=== PATIENT | male | born 1960 | race Hispanic/Latino ===

== ENCOUNTER 2018-12-31 09:24 | Emergency (ER) | payer SELFPAY ==
[2018-12-31 09:55] LABS: Absolute Lymphocytes (CBC) 1.6 K/uL (0.7-4.9); Absolute Monocytes 0.4 K/uL (0.1-1.3); Absolute Neutrophil 3.7 K/uL (1.8-8.0); Basophils % 0.4 % (0-1.3); Eosinophils % 3.8 % (0-4.4); Hematocrit 48.9 % (39.6-49.0); Lymphocytes % 27.4 % (15.3-44.8); MPV 8.4 fL (7.6-11.3); Monocytes % 6.5 % (3.3-12.3)
--- NOTE | 2018-12-31 09:58 | RAD REPORT ---
EXAM DESCRIPTION: CT - Head Brain Wo Cont - 12/31/2018 9:47 am CLINICAL HISTORY: Left-sided weakness, facial droop COMPARISON: None. TECHNIQUE: Axial 5 mm thick images of the head were obtained without IV contrast. All CT scans are performed using dose optimization technique as appropriate and may include automated exposure control or mA/KV adjustment according to patient size. FINDINGS: No intracranial hemorrhage, mass, edema or shift of mid-line structures. No acute cortical based infarction. There is an approximately 2 centimeter area of diminished attenuation involving th e right-side thalamus and posterior limb internal capsule. In a patient with left extremity weakness this is most likely acute nonhemorrhagic infarction. CVA changes likely extend further into the deep periventricular white matter posterior right frontal lobe. Patient has very prominent underlying chronic ischemic change throughout the cerebral hemispheric whi te matter. No abnormal extra-axial fluid collections. Ventricles are normal. No measurable atrophy. Mastoid air cells and visualized portions of the paranasal sinuses are clear. No acute bony findings. Findings telephoned to the referring clinician 9:45 a.m.. IMPRESSION: Moderately large area of nonhemorrhagic acute CVA involving the right thalamus, posterio r limb internal capsule on the right and likely extending in the deep periventricular white matter po sterior right frontal lobe. No hemorrhage or mass within the brain parenchyma. Patient has very advanced for age chronic ischemic change throughout the cerebral white matter.
--- NOTE | 2018-12-31 10:06 | RAD REPORT ---
EXAM DESCRIPTION: RAD - Chest Single View - 12/31/2018 9:50 am CLINICAL HISTORY: Left-sided weakness, code stroke chest exam COMPARISON: None. TECHNIQUE: AP portable chest image was obtained 0948 hours . FINDINGS: Lungs are clear. Heart and vasculature are normal. No measurable pleural effusion and no p neumothorax. No acute bony abnormality seen. No acute aortic findings suspected. IMPRESSION: No acute cardiopulmonary process.
[2018-12-31 10:07] LABS: Protime INR 0.99
[2018-12-31] MEDS ORDERED: CLOPIDOGREL 75 MG TABLET ONE (10:13)
[2018-12-31] MEDS ORDERED: ASPIRIN EC 81 MG TAB PO ONE (10:13)
[2018-12-31] MEDS ORDERED: LABETALOL 20 MG/4ML SYRINGE IV ONE (10:13)
[2018-12-31 10:14] LABS: ALT/SGPT 40 U/L (12-78); AST/SGOT 22 U/L (15-37); Albumin 4.1 g/dL (3.4-5.0); Alkaline Phosphatase 106 U/L (45-117); BUN Blood Urea Nitrogen 24 mg/dL (7-18); Bicarbonate 31 mmol/L (21-32); Bilirubin Direct 0.1 mg/dL (0-0.2); Bilirubin Total 0.4 mg/dL (0.2-1.0); Glucose Level 133 mg/dL (74-106); Potassium 3.9 mmol/L (3.5-5.1); Protein, Total 8.2 g/dL (6.4-8.2); Sodium Level 135 mmol/L (136-145); Troponin (Emerg Dept Use Only) < 0.02 ng/mL (0.0-0.045)
--- NOTE | 2018-12-31 10:25 | ER ---
Nurse's Notes [facility] Name: Abebe Bueno Age: 58 yrs Sex: Male : 1960 Arrival Date: 12/31/2018 Time: 09:25 Bed 6 Private MD: Diagnosis: Cerebral infarction Presentation: 12/31 09:32 Presenting complaint: Patient states: L sided weakness that began last night at 1030. ss Pt was admitted last Thursday for the same symptoms at [facility], but reports the symptoms went away, but are now back. Transition of care: patient was not received from another setting of care. Onset of symptoms was December 30, 2018. Risk Assessment: Do you want to hurt yourself or someone else? Patient reports no desire to harm self or others. Initial Sepsis Screen: Does the patient meet any 2 criteria? No. Patient's initial sepsis screen is negative. Does the patient have a suspected source of infection? No. Patient's initial sepsis screen is negative. Care prior to arrival: None. 09:32 Method Of Arrival: Wheelchair ss 09:32 Acuity: ALEJANDRO 2 ss Triage Assessment: 09:56 General: Appears in no apparent distress. comfortable, Behavior is cooperative, bp appropriate for age, anxious. Pain: Denies pain. Historical: - Allergies: 09:31 No Known Allergies; ss - PMHx: 09:31 Hypertension; Diabetes - NIDDM; ss - Immunization history:: Adult Immunizations up to date. - Social history:: Smoking status: Patient/guardian denies using tobacco. - Ebola Screening: : Patient denies exposure to infectious person Patient denies travel to an Ebola-affected area in the 21 days before illness onset. Screenin:30 The patient has not been NPO before screening. The patient is alert, able to follow bp commands. The patient exhibits slurred or garbled speech. The patient is not exhibiting difficulty speaking. The patient does not exhibit difficulty understanding words. The patient is able to swallow own secretions with no drooling or need for suction. Patient tolerated one teaspoon of water. No drooling, immediate coughing, gurgling, or clearing of the throat was noted. The patient tolerated 90mL of water. No drooling, immediate coughing, gurgling, or clearing of the throat was noted. The patient passed the bedside swallow screening. Oral medications may be given as ordered. Contact Physician for further diet orders. Provider notified of bedside swallow screening results: Yuri VAIL. 09:47 Abuse screen: Denies threats or abuse. Denies injuries from another. Nutritional ss screening: No deficits noted. Tuberculosis screening: Never had TB. Fall Risk None identified. Assessment: 09:30 General: Appears in no apparent distress. comfortable, Behavior is calm, cooperative, bp appropriate for age. Pain: Denies pain. Neuro: Level of Consciousness is awake, alert, obeys commands, Oriented to person, place, time, situation, Appropriate for age Dairy Manufacturing Technologist are weak on left Weakness in left arm(s) Speech is slurred, Facial droop on left. Cardiovascular: Rhythm is sinus rhythm. Respiratory: Airway is patent Respiratory effort is even, unlabored, Respiratory pattern is regular, symmetrical. GI: No signs and/or symptoms were reported involving the gastrointestinal system. : No signs and/or symptoms were reported regarding the genitourinary system. EENT: No deficits noted. Derm: No deficits noted. Musculoskeletal: Circulation, motion, and sensation intact. Range of motion: intact in all extremities. 10:00 Reassessment: TPA RULED OUT DUE TO ONSET. PER PROVIDER, NO HEMORRHAGE ON CT. bp 10:15 Reassessment: TRANSFER INITIATED TO [facility] FOR NEURO. bp 11:30 Reassessment: TRANSFER IN PROCESS, FAMILY AT [facility], NO CHANGE IN NEURO STATUS. aj1 12:13 Reassessment: REPORT TO MAI KIRBY AT [facility], RM 2222. TRANSPORT PENDING. bp 12:44 Reassessment: [facility] AT [facility] FOR TRANSPORT. bp Vital Signs: 09:30 BP 189 / 119; Pulse 76; Resp 17; Temp 98.1(TE); Pulse Ox 98% on R/A; Height 5 ft. 3 in. ss (160.02 cm); Pain 0/10; 10:00 BP 193 / 128; Pulse 72; Resp 17; Pulse Ox 97% ; bp 10:15 BP 171 / 119; Pulse 66; Resp 14; Pulse Ox 96% ; bp 11:15 BP 184 / 112; Pulse 76; Resp 16; Pulse Ox 95% ; aj1 12:00 BP 149 / 107; Pulse 75; Resp 13; Pulse Ox 95% ; bp 12:45 BP 163 / 107; Pulse 77; Resp 19; Pulse Ox 96% ; bp NIH Stroke Scale Scores: 09:30 NIHSS Score: 7 bp 09:53 NIHSS Score: 6 jr8 ED Course: 09:25 Patient arrived in ED. rg4 09:30 Arm band placed on right wrist. ss 09:32 Yuri Araiza PA is PHCP. jr8 09:32 Samir Linares MD is Attending Physician. jr8 09:33 Triage completed. ss 09:45 Inserted saline lock: 20 gauge in right antecubital area, using aseptic technique. ss ,using aseptic technique. insertion by David Russell, GOVERNMENT SALES MANAGER Blood collected. 09:47 Patient has correct armband on for positive identification. Bed in low position. Call ss light in reach. 09:48 X-ray completed. Portable x-ray completed in exam room. Patient tolerated procedure jb2 well. 09:49 EKG done, by fingernail technician. reviewed by Yuri VAIL. sm3 09:56 Gus Young, MIRTA is Primary Nurse. bp 10:12 initiated a transfer with Dorys at the [facility] transfer center. eb 10:[address] Low the neurologist conservation science teacher with Yuri VAIL for patient transfer eb consultation. 10:[address] Morillo the hospitalist conservation science teacher for [facility] with Yuri for patient eb transfer consultation. 11:52 administrative approval given by Dorys aDvila RN at the [facility] transfer eb center/ Dr. Cheema has accepted the patient in transfer/ patient will be going to 2222/ report to be called to [phone]. 12:13 No provider procedures requiring assistance completed. Patient transferred, IV remains bp in place. Administered Medications: 10:07 Drug: Aspirin 81 mg Route: PO; bp 10:18 Follow up: Response: No adverse reaction bp 10:07 Drug: PlaVIX 75 mg Route: PO; bp 10:18 Follow up: Response: No adverse reaction bp 10:07 Drug: Labetalol 10 mg Route: IVP; Site: right antecubital; bp 10:18 Follow up: Response: No adverse reaction bp Point of Care Testing: Blood Glucose: 09:47 Blood Glucose: 143 mg/dL; ss Ranges: Outcome: 10:25 ER care complete, transfer ordered by MD. stanley 12:12 Transferred by ground EMS [place] [facility] [facility] [place]. bp 12:12 Condition: stable 12:12 Instructed on the need for transfer. 12:45 Patient left the ED. bp NIH Stroke Scale - NIH Stroke Score Date: 12/31/2018 Time: 09:30 Total Score = 7 1a. Level of Consciousness (LOC) - 0(Alert) 1b. Level of Consciousness (LOC) (Year \T\ Age) - 0(Both) 1c. LOC Commands (Open \T\ Closes Eyes/Bulk Truck Driver) - 0(Both) 2. Best Gaze (Lateral Gaze Paresis) - 0(Normal) 3. Visual Field Loss - 0(No visual loss) 4. Facial Palsy - 2(Partial paralysis) 5a. Left Arm: Motor (10-second hold) - 1(Drift) 5b. Right Arm: Motor (10-second hold) - 0(No drift) 6a. Left Leg: Motor (5-second hold - always test supine) - 1(Drift) 6b. Right Leg: Motor (5-second hold - always test supine) - 0(No drift) 7. Limb Ataxia (finger/nose \T\ heel/melo - test with eyes open) - 1(Present in one limb) 8. Sensory Loss (pinprick arms/legs/face) - 1(Mild to moderate loss) 9. Best Language: Aphasia (description/naming/reading) - 0(No aphasia) 10. Dysarthria (speech clarity - read or repeat words) - 1(Mild to Moderate) 11. Extinction and Inattention (visual/tactile/auditory/spatial/personal) - 0(No abnormality) Initials: bp NIH Stroke Scale - NIH Stroke Score Date: 12/31/2018 Time: 09:53 Total Score = 6 1a. Level of Consciousness (LOC) - 0(Alert) 1b. Level of Consciousness (LOC) (Year \T\ Age) - 0(Both) 1c. LOC Commands (Open \T\ Closes Eyes/Bulk Truck Driver) - 0(Both) 2. Best Gaze (Lateral Gaze Paresis) - 0(Normal) 3. Visual Field Loss - 0(No visual loss) 4. Facial Palsy - 1(Minor Paralysis) 5a. Left Arm: Motor (10-second hold) - 1(Drift) 5b. Right Arm: Motor (10-second hold) - 0(No drift) 6a. Left Leg: Motor (5-second hold - always test supine) - 1(Drift) 6b. Right Leg: Motor (5-second hold - always test supine) - 0(No drift) 7. Limb Ataxia (finger/nose \T\ heel/melo - test with eyes open) - 2(Present in two limbs) 8. Sensory Loss (pinprick arms/legs/face) - 0(Normal) 9. Best Language: Aphasia (description/naming/reading) - 0(No aphasia) 10. Dysarthria (speech clarity - read or repeat words) - 1(Mild to Moderate) 11. Extinction and Inattention (visual/tactile/auditory/spatial/personal) - 0(No abnormality) Initials: lizeth Signatures: Gladys Oh RN RN aj1 Timoteo Nino2 Malu Burroughs RN RN ss Yuri Araiza PA PA jr8 Ofelia Bueno rg4 Gus Young RN RN Hellen Jauregui Shakira sm3 Corrections: (The following items were deleted from the chart) 10:38 10:[address] Ocampo the neurologist conservation science teacher with Yuri VAIL for patient eb transfer consultation. eb 11:36 11:35 Reassessment: TRANSFER IN PROCESS, FAMILY AT B/S, NO CHANGE IN NEURO aj1 STATUS aj1
--- NOTE | 2018-12-31 10:26 | EDPHYS ---
Physician Documentation [facility] Name: Abebe Bueno Age: 58 yrs Sex: Male : 1960 Arrival Date: 12/31/2018 Time: 09:25 Bed 6 Private MD: ED Physician Samir Linares HPI: 12/31 09:53 This 58 yrs old Male presents to ER via Wheelchair with complaints of Numbness jr8 Of Arm. 09:53 The patient presents to the emergency department with weakness of the left upper jr8 extremity, that is moderate, left lower extremity, that is moderate. Onset: The symptoms/episode began/occurred acutely, at 22:30, last night. Context: occurred at home, occurred while the patient was at rest. Associated signs and symptoms: Pertinent positives: headache. Severity of symptoms: At their worst the symptoms were moderate in the emergency department the symptoms are unchanged. Patient's baseline: Neuro: alert and fully oriented, Motor: no deficits, Ambulation: walks without assistance, Speech: normal. Current symptoms: Currently, the patient is not experiencing any symptoms. The patient has experienced a previous episode. The patient has not recently seen a physician. stated that last week he was admitted to another hospital for what sounds like TIA symptoms. Currently not on aspirin or plavix but takes blood pressure medicine and medicine for diabetes. Last night at 22:30 started to have mild headache followed by numbness of left arm. saw his this morning and noticed he had weakness to left side of body and facial droop. Brought to clinic at that time and was told to come to ED . Historical: - Allergies: 09:31 No Known Allergies; ss - PMHx: 09:31 Hypertension; Diabetes - NIDDM; ss - Immunization history:: Adult Immunizations up to date. - Social history:: Smoking status: Patient/guardian denies using tobacco. - Ebola Screening: : Patient denies exposure to infectious person Patient denies travel to an Ebola-affected area in the 21 days before illness onset. ROS: 09:53 Eyes: Negative for injury, pain, redness, and discharge, ENT: Negative for injury, jr8 pain, and discharge, Neck: Negative for injury, pain, and swelling, Cardiovascular: Negative for chest pain, palpitations, and edema, Respiratory: Negative for shortness of breath, cough, wheezing, and pleuritic chest pain, Abdomen/GI: Negative for abdominal pain, nausea, vomiting, diarrhea, and constipation, Back: Negative for injury and pain, MS/Extremity: Negative for injury and deformity, Skin: Negative for injury, rash, and discoloration. 09:53 Neuro: Positive for headache, numbness, weakness. Exam: 09:53 Eyes: Pupils equal round and reactive to light, extra-ocular motions intact. Lids and jr8 lashes normal. Conjunctiva and sclera are non-icteric and not injected. Cornea within normal limits. Periorbital areas with no swelling, redness, or edema. ENT: Nares patent. No nasal discharge, no septal abnormalities noted. Tympanic membranes are normal and external auditory canals are clear. Oropharynx with no redness, swelling, or masses, exudates, or evidence of obstruction, uvula midline. Mucous membranes moist. Neck: Trachea midline, no thyromegaly or masses palpated, and no cervical lymphadenopathy. Supple, full range of motion without nuchal rigidity, or vertebral point tenderness. No Meningismus. Cardiovascular: Regular rate and rhythm with a normal S1 and S2. No gallops, murmurs, or rubs. Normal PMI, no JVD. No pulse deficits. Respiratory: Lungs have equal breath sounds bilaterally, clear to auscultation and percussion. No rales, rhonchi or wheezes noted. No increased work of breathing, no retractions or nasal flaring. Abdomen/GI: Soft, non-tender, with normal bowel sounds. No distension or tympany. No guarding or rebound. No evidence of tenderness throughout. Back: No spinal tenderness. No costovertebral tenderness. Full range of motion. Skin: Warm, dry with normal turgor. Normal color with no rashes, no lesions, and no evidence of cellulitis. MS/ Extremity: Pulses equal, no cyanosis. Neurovascular intact. Full, normal range of motion. 09:53 Neuro: Orientation: to person, place, time \T\ situation. Mentation: is normal, Memory: is normal, immediate memory is intact, recent memory is intact, remote memory is intact, Cranial nerves: CN I not tested, CN II- XII are normal as tested, visual garvin are intact. extraocular movements are intact, facial droop noted on left, with forehead spared. no gross hearing deficit,. Nystagmus is absent. Speech is slurred, Tongue strength is normal, Cerebellar function: dysmetria is noted on the left, the patient is unable to track left heel to right melo, Motor: moves all fours, Sensation: no obvious gross deficits, Gait: not tested. seizure activity, is not displayed by the patient, Abnormal movements: there are no abnormal movements. Vital Signs: 09:30 BP 189 / 119; Pulse 76; Resp 17; Temp 98.1(TE); Pulse Ox 98% on R/A; Height 5 ft. 3 in. ss (160.02 cm); Pain 0/10; 10:00 BP 193 / 128; Pulse 72; Resp 17; Pulse Ox 97% ; bp 10:15 BP 171 / 119; Pulse 66; Resp 14; Pulse Ox 96% ; bp 11:15 BP 184 / 112; Pulse 76; Resp 16; Pulse Ox 95% ; aj1 12:00 BP 149 / 107; Pulse 75; Resp 13; Pulse Ox 95% ; bp 12:45 BP 163 / 107; Pulse 77; Resp 19; Pulse Ox 96% ; bp NIH Stroke Scale Scores: 09:30 NIHSS Score: 7 bp 09:53 NIHSS Score: 6 jr8 MDM: 09:32 Patient medically screened. [facility] 09:45 ED course: Talked to Dr. Silverio Radiology. Acute non hemorrhagic stroke identified [facility] right cerebrum . 09:53 Data reviewed: vital signs, nurses notes, lab test result(s), EKG, radiologic studies, [facility] CT scan, plain films. Data interpreted: Pulse oximetry: on room air is 98 %. Interpretation: normal. Counseling: I had a detailed discussion with the patient and/or guardian regarding: the historical points, exam findings, and any diagnostic results supporting the discharge/admit diagnosis, lab results, radiology results, the need to transfer to another facility, for higher level of care, [facility] does not immediately have the required specialist. 10:13 ED course: Patient well out of time window for tPA. Aspirin, plavix given. . [facility] 10:37 ED course: Dr. Low neurology and Dr. Deni DEE consulted and accepted patient at [address] as we do not have neurology on today. 12/31 09:37 Order name: Hepatic Function [facility] 12/31 09:37 Order name: Magnesium jr12/31 09:37 Order name: Troponin (emerg Dept Use Only) 12/31 09:37 Order name: Basic Metabolic Panel 12/31 09:37 Order name: CBC with Diff 12/31 09:37 Order name: Protime (+inr) 12/31 09:37 Order name: Ptt, Activated 12/31 09:57 Order name: CBC with Automated Diff; Complete Time: 10:02 EDMS 12/31 10:09 Order name: Protime (+INR); Complete Time: 10:14 EDMS 12/31 10:09 Order name: PTT, Activated Partial Thromb; Complete Time: 10:14 EDMS 12/31 10:15 Order name: Basic Metabolic Panel; Complete Time: 10:25 EDMS 12/31 10:15 Order name: Liver (Hepatic) Function; Complete Time: 10:25 EDMS 12/31 10:15 Order name: Troponin (Emerg Dept Use Only); Complete Time: 10:25 EDMS 12/31 10:15 Order name: Magnesium; Complete Time: 10:25 EDMS 12/31 09:35 Order name: CT Head Brain wo Cont 12/31 09:37 Order name: Stroke CXR 1 View 12/31 09:37 Order name: EKG; Complete Time: 09:38 12/31 09:37 Order name: Accucheck; Complete Time: :12/31 09:37 Order name: Cardiac monitoring; Complete Time: :12/31 09:37 Order name: EKG - Nurse/Tech; Complete Time: :12/31 09:37 Order name: IV Saline Lock; Complete Time: :12/31 09:37 Order name: Labs collected and sent; Complete Time: :12/31 09:37 Order name: NPO; Complete Time: :12/31 09:37 Order name: O2 Per Protocol; Complete Time: :12/31 09:37 Order name: O2 Sat Monitoring; Complete Time: :12/31 10:04 Order name: CT; Complete Time: 10:06 EDMS 12/31 10:07 Order name: RAD; Complete Time: 10:14 EDMS 12/31 09:37 Order name: Stroke Swallow Screen; Complete Time: 10:20 jr8 Administered Medications: 10:07 Drug: Aspirin 81 mg Route: PO; bp 10:18 Follow up: Response: No adverse reaction bp 10:07 Drug: PlaVIX 75 mg Route: PO; bp 10:18 Follow up: Response: No adverse reaction bp 10:07 Drug: Labetalol 10 mg Route: IVP; Site: right antecubital; bp 10:18 Follow up: Response: No adverse reaction bp Point of Care Testing: Blood Glucose: 09:47 Blood Glucose: 143 mg/dL; ss Ranges: Critical Glucose Levels:Adult <50 mg/dl or >400 mg/dl <40 mg/dl or >180 mg/dl Disposition: 15:35 Co-signature as Attending Physician, Samir Linares MD I agree with the assessment and kdr plan of care. Disposition: 12/31/18 10:25 Transfer ordered to [facility]. Diagnosis is Cerebral infarction. - Reason for transfer: Higher level of care. - Accepting physician is Dr. Maranda Lopez. - Condition is Fair. - Problem is new. - Symptoms are unchanged. NIH Stroke Scale - NIH Stroke Score Date: 12/31/2018 Time: 09:30 Total Score = 7 1a. Level of Consciousness (LOC) - 0(Alert) 1b. Level of Consciousness (LOC) (Year \T\ Age) - 0(Both) 1c. LOC Commands (Open \T\ Closes Eyes/Car Mechanic) - 0(Both) 2. Best Gaze (Lateral Gaze Paresis) - 0(Normal) 3. Visual Field Loss - 0(No visual loss) 4. Facial Palsy - 2(Partial paralysis) 5a. Left Arm: Motor (10-second hold) - 1(Drift) 5b. Right Arm: Motor (10-second hold) - 0(No drift) 6a. Left Leg: Motor (5-second hold - always test supine) - 1(Drift) 6b. Right Leg: Motor (5-second hold - always test supine) - 0(No drift) 7. Limb Ataxia (finger/nose \T\ heel/melo - test with eyes open) - 1(Present in one limb) 8. Sensory Loss (pinprick arms/legs/face) - 1(Mild to moderate loss) 9. Best Language: Aphasia (description/naming/reading) - 0(No aphasia) 10. Dysarthria (speech clarity - read or repeat words) - 1(Mild to Moderate) 11. Extinction and Inattention (visual/tactile/auditory/spatial/personal) - 0(No abnormality) Initials: bp NIH Stroke Scale - NIH Stroke Score Date: 12/31/2018 Time: 09:53 Total Score = 6 1a. Level of Consciousness (LOC) - 0(Alert) 1b. Level of Consciousness (LOC) (Year \T\ Age) - 0(Both) 1c. LOC Commands (Open \T\ Closes Eyes/Car Mechanic) - 0(Both) 2. Best Gaze (Lateral Gaze Paresis) - 0(Normal) 3. Visual Field Loss - 0(No visual loss) 4. Facial Palsy - 1(Minor Paralysis) 5a. Left Arm: Motor (10-second hold) - 1(Drift) 5b. Right Arm: Motor (10-second hold) - 0(No drift) 6a. Left Leg: Motor (5-second hold - always test supine) - 1(Drift) 6b. Right Leg: Motor (5-second hold - always test supine) - 0(No drift) 7. Limb Ataxia (finger/nose \T\ heel/melo - test with eyes open) - 2(Present in two limbs) 8. Sensory Loss (pinprick arms/legs/face) - 0(Normal) 9. Best Language: Aphasia (description/naming/reading) - 0(No aphasia) 10. Dysarthria (speech clarity - read or repeat words) - 1(Mild to Moderate) 11. Extinction and Inattention (visual/tactile/auditory/spatial/personal) - 0(No abnormality) Initials: lizeth Signatures: Dispatcher [employer] EDWA Samir Linares MD MD [facility] Malu Burroughs RN RN Yrui Vu PA PA jr8 Peltier, Brian, RN RN bp Corrections: (The following items were deleted from the chart) 10:38 10:25 12/31/2018 10:25 Transfer ordered to [facility]. jr8 Diagnosis is Cerebral infarction. Reason for transfer: Higher level of care. Accepting physician is [facility]. Condition is Fair. Problem is new. Symptoms are unchanged. lizeth 12:45 10:38 12/31/2018 10:25 Transfer ordered to [facility]. bp Diagnosis is Cerebral infarction. Reason for transfer: Higher level of care. Accepting physician is Dr. Cheema, Dr. Low. Condition is Fair. Problem is new. Symptoms are unchanged. jr8
--- NOTE | 2018-12-31 13:53 | EKG ---
Test Date: 2018-12-31 Test Time: 09:43:45 District Agent: NADIR MEASUREMENT RESULTS: Intervals: Rate: 66 IN: 166 QRSD: 84 QT: 386 QTc: 404 Alloy: P: 48 IN: 166 QRS: 70 T: -13 INTERPRETIVE STATEMENTS: Normal sinus rhythm T wave abnormality, consider inferior ischemia Abnormal ECG No previous ECG available for comparison Electronically Signed On 12-31-18 13:51:24 HORSE RANCHER by Kwame Holder
== END 2018-12-31 12:45 | disposition short-term general hospital (02) ==
LOC: ER 09:24
DX: I63.9 Cerebral infarction, unspecified (principal); I10 Essential (primary) hypertension; R29.707 NIHSS score 7
CPT/HCPCS: 36415; 70450; 71045; 80048; 80076; 82962; 83735; 84484; 85025; 85610; 85730; 93005; 96374; 99285

== ENCOUNTER 2024-03-11 16:58 | Emergency (ER) | payer MEDICAID, SELFPAY ==
[2024-03-11] MEDS ORDERED: KETOROLAC 30 MG/ML INJ ONE (17:27)
[2024-03-11] MEDS ORDERED: METOCLOPRAMIDE 10 MG/2mL INJ ONE (17:27)
[2024-03-11] MEDS ORDERED: DIPHENHYDRAMINE 50 MG/ML VIAL ONE (17:27)
[2024-03-11] MEDS ORDERED: NA CHLORIDE 0.9% 1,000 ML ONE (17:27)
[2024-03-11 17:47] LABS: Absolute Lymphocytes (CBC) 0.2 K/uL (0.7-4.9); Absolute Monocytes 0.3 K/uL (0.1-1.3); Absolute Neutrophil 8.1 K/uL (1.8-8.0); Eosinophils % 0.1 % (0-4.4); Hemoglobin 13.6 g/dL (13.6-17.9); Lymphocytes % 1.9 % (15.3-44.8); MCH 28.4 pg (27.0-35.0); MCHC 33.2 g/dL (32.0-36.0); MCV 85.6 fL (80-100); MPV 8.4 fL (7.6-11.3); Monocytes % 3.2 % (3.3-12.3); Neutrophils % 94.8 % (41.7-73.7); Platelets 153 thou/uL (152-406); RBC Red Blood Cell Count 4.79 M/uL (4.33-5.43); Red Cell Distribution Width 15.5 % (12.1-15.2)
[2024-03-11 18:12] LABS: Albumin 3.4 g/dL (3.4-5.0); Albumin/Globulin Ratio 0.9 (1.1-1.8); Anion Gap 12.2 mEq/L (5.0-15.0); Bilirubin Direct 0.3 mg/dL (0-0.2); Bilirubin Indirect, Calculated 0.6 mg/dL (0.2-0.8); Bilirubin Total 0.9 mg/dL (0.2-1.0); Globulin 3.6 g/dL (2.3-3.5); Magnesium 1.6 mg/dL (1.6-2.4); Potassium 3.2 mEq/L (3.5-5.1); Troponin High Sensitivity 13.6 pg/mL (<58.9)
[2024-03-11] MEDS ORDERED: Magnesium Sulfate 2gm IVPB 2 G/50 ML BAG IV ONE (18:47)
--- NOTE | 2024-03-11 18:48 | RAD REPORT ---
EXAM DESCRIPTION: RAD - Chest Single View - 03/11/2024 6:39 pm CLINICAL HISTORY: Weakness,headache,chills COMPARISON: Chest Single View dated 12/31/2018 FINDINGS: Lines: None. Lungs: No evidence of edema or pneumonia. Pleural: No significant pleural effusions or pneumothorax. Cardiac: The heart size is within normal limits. Mediastinum: Within normal limits. Bones: No acute fractures. Other: None IMPRESSION: No acute cardiopulmonary disease.
[2024-03-11 18:55] LABS: Specific Gravity 1.018 (1.005-1.030); Sqamous Epithelial <5 /HPF (None Seen); Urine Bacteria 20-50 /HPF (<20); Urine Bilirubin NEGATIVE (Negative); Urine Blood 3+ (OVER) (Negative); Urine Clarity Extremely Turbid (Clear); Urine Color Light-Orange (Yellow); Urine Culture Reflex Order REFLEXED; Urine Glucose NEGATIVE (Negative); Urine Ketones NEGATIVE (Negative); Urine Micro Reflex YN NO BILL MICROSCOPIC; Urine Mucus Slight /HPF (None Seen); Urine Nitrite NEGATIVE (Negative); Urine Protein 1+ (Negative); Urine RBC >50 /HPF (None Seen); Urine Urobilinogen Normal (Normal); Urine WBC >50 /HPF (<5); Urine pH 5.5 (5.0-7.0)
[2024-03-11 19:18] LABS: Blood Morphology Comment NOT SEEN (NOT SEEN); Platelet Estimate ADEQ; White Blood Cell Scan OK (OK)
[2024-03-12 14:52] VITALS: BP 117/83; TEMP 98.2; O2SAT 96
== END 2024-03-11 19:23 | disposition home or self-care (01) ==
LOC: ER 16:58
DX: R51.9 Headache, unspecified (principal); R31.9 Hematuria, unspecified; E83.42 Hypomagnesemia; Z86.73 Personal history of transient ischemic attack (TIA), and cerebral infarction without residual deficits
CPT/HCPCS: 36415; 71045; 80048; 80076; 81001; 83735; 84484; 85025; 87077; 87086; 87088; 87186; 96361; 96374; 96375; 99285; J1200; J2765; J3475; J7030

== ENCOUNTER 2024-03-11 21:34 | Inpatient (IN) | payer MEDICAID, SELFPAY ==
[2024-03-11] MEDS ORDERED: ACETAMINOPHEN 500 MG TAB ONE (22:20)
[2024-03-11] MEDS ORDERED: Meropenem 1000 MG/VIAL IV ONE (22:20)
[2024-03-11] MEDS ORDERED: NA CHLORIDE 0.9% 100 ML ONE (22:21)
[2024-03-11] MEDS ORDERED: NA CHLORIDE 0.9% 1,000 ML ONE ×2 (22:21→23:51)
[2024-03-11 22:40] LABS: Absolute Lymphocytes (CBC) 0.1 K/uL (0.7-4.9); Absolute Monocytes 0.1 K/uL (0.1-1.3); Absolute Neutrophil 3.6 K/uL (1.8-8.0); Basophils % 0.2 % (0-1.3); Hematocrit 37.1 % (39.6-49.0); Hemoglobin 12.4 g/dL (13.6-17.9); Lymphocytes % 2.4 % (15.3-44.8); MCH 28.7 pg (27.0-35.0); MCHC 33.4 g/dL (32.0-36.0); MPV 8.3 fL (7.6-11.3); Monocytes % 1.5 % (3.3-12.3); Neutrophils % 95.9 % (41.7-73.7); Nucleated Red Blood Cells % 0.1 % (0-0); Platelets 120 thou/uL (152-406); RBC Red Blood Cell Count 4.31 M/uL (4.33-5.43); Red Cell Distribution Width 15.7 % (12.1-15.2)
[2024-03-11 22:50] LABS: PT Prothrombin Time 16.9 SECONDS (9.5-12.5); PTT, Activated Partial Thromb 28.6 SECONDS (24.3-36.9); Protime INR 1.56
[2024-03-11 23:01] LABS: Albumin/Globulin Ratio 0.9 (1.1-1.8); Anion Gap 10.2 mEq/L (5.0-15.0); Bilirubin Total 0.9 mg/dL (0.2-1.0); Globulin 3.4 g/dL (2.3-3.5); Potassium 3.2 mEq/L (3.5-5.1); Protein, Total 6.4 g/dL (6.4-8.2); Troponin High Sensitivity 18.7 pg/mL (<58.9)
[2024-03-11] MEDS ORDERED: Levofloxacin 750mg IV 750 MG/150 ML BAG IV ONE (23:51)
[2024-03-11] MEDS ORDERED: POTASSIUM 25 MEQ EFFERV TAB ONE (23:51)
--- NOTE | 2024-03-11 23:58 | ER ---
Nurse's Notes [facility] Name: Abebe Bueno Age: 63 yrs Sex: Male : 1960 Arrival Date: 03/11/2024 Time: 21:34 Bed 14 Private MD: Diagnosis: Severe sepsis without septic shock;UTI/ Urinary tract infection, site not specified Presentation: 03/11 21:38 Chief complaint: Patient states: I had a prostate biopsy yesterday. Today I have chills bm8 and have been running a high fever and not breathing right. Coronavirus screen: At this time, the client does not indicate any symptoms associated with coronavirus-19. Ebola Screen: Patient negative for fever greater than or equal to 101.5 degrees Fahrenheit, and additional compatible Ebola Virus Disease symptoms Patient denies exposure to infectious person. Patient denies travel to an Ebola-affected area in the 21 days before illness onset. No symptoms or risks identified at this time. 21:38 Initial Sepsis Screen: Does the patient meet any 2 criteria? RR > 20 per min. Temp bm8 <36.0*C (96.8*F)) or > 38.3*C (100.9*F). HR > 90 bpm. Yes Does the patient have a suspected source of infection? No. Patient's initial sepsis screen is negative. Risk Assessment: Do you want to hurt yourself or someone else? Patient reports no desire to harm self or others. Onset of symptoms was March 11, 2024 at 08:00. Care prior to arrival: Medication(s) given: Normal saline infusion, 1000 mL, IV initiated. 18 GA, in the left antecubital area, Oxygen administered. via a non-rebreather mask. 21:38 Acuity: ALEJANDRO 2 bm8 21:54 Method Of Arrival: EMS: [facility] bm8 Triage Assessment: 21:56 General: Appears in no apparent distress. uncomfortable, Behavior is calm, cooperative, bm8 appropriate for age. Pain: Denies pain. EENT: No deficits noted. No signs and/or symptoms were reported regarding the EENT system. Neuro: No deficits noted. Level of Consciousness is awake, alert, obeys commands, Oriented to person, place, time, situation, Appropriate for age. Cardiovascular: Denies chest pain, lightheadedness, shortness of breath, Heart tones S1 S2 present Capillary refill < 3 seconds Patient's skin is warm and dry. Rhythm is sinus tachycardia. Respiratory: No deficits noted. Airway is patent Respiratory effort is even, unlabored, Respiratory pattern is regular, hyperventilation. GI: Reports blood in stool after biospy and rectal pain when defecating. : No deficits noted. Denies pain. Historical: - Allergies: 21:56 No Known Allergies; bm8 - Home Meds: 21:56 carvedilol 12.5 mg oral tablet [Active]; metformin 500 mg Oral Tablet, Extended Release bm8 24 hr 1 tab 2 times per day [Active]; Flexeril Oral 10 mg [Active]; nifedipine 90 mg Oral Tablet, Extended Release 24 hr 1 tab [Active]; aspirin 81 mg Oral capsule 1 cap [Active]; calcium citrate Oral [Active]; Cipro 500 mg Oral tablet 1 tab 2 times per day [Active]; hydrochlorothiazide 25 mg Oral tablet [Active]; butalbital/apap/ca 50/325 [Active]; - PMHx: 21:56 Cerebrovascular accident; Diabetes - NIDDM; Hypertension; bm8 - PSHx: 21:56 prostate biopsy (Hypertension); bm8 - Immunization history:: Adult Immunizations unknown. - Infectious Disease History:: Denies. - Social history:: Smoking status: unknown. Screenin/04 00:27 [facility] ED Fall Risk Assessment (Adult) History of falling in the last 3 months, bm8 including since admission No falls in past 3 months (0 pts) Confusion or Disorientation No (0 pts) Intoxicated or Sedated No (0 pts) Impaired Gait Yes (1 pt) Mobility Assist Device Used No (0 pt) Altered Elimination No (0 pt) Score/Fall Risk Level 0 - 2 = Low Risk Oriented to surroundings, Maintained a safe environment, Educated pt \T\ family on fall prevention, incl call for assistance when getting out of bed. Abuse screen: Denies threats or abuse. Nutritional screening: No deficits noted. Tuberculosis screening: No symptoms or risk factors identified. Assessment: 03/11 23:00 Reassessment: Patient appears in no apparent distress at this time. Patient and/or bm8 family updated on plan of care and expected duration. Pain level reassessed. Patient is alert, oriented x 3, equal unlabored respirations, skin warm/dry/pink. Patient denies pain at this time. Neuro: No deficits noted. Level of Consciousness is awake, alert, obeys commands. Cardiovascular: No deficits noted. Capillary refill < 3 seconds Patient's skin is warm and dry. Rhythm is sinus tachycardia. Respiratory: Airway is patent Respiratory effort is even, unlabored, Respiratory pattern is hyperventilation. GI: Abdomen is round distended, Bowel sounds present X 4 quads. : Urine is odette blood, URINE APPEARS A TEA COLOR. 03/12 00:27 Reassessment: Patient appears in no apparent distress at this time. Patient and/or bm8 family updated on plan of care and expected duration. Pain level reassessed. Patient is alert, oriented x 3, equal unlabored respirations, skin warm/dry/pink. TEMPERATURE IMPROVED. PT WAS GETTING SLEEPY AND O2 SAT WAS DROPPING PT WAS SLEEPING. 2L NC PLACED ON AND PT INSTRUCTED TO TAKE SEVERAL SLOW DEEP BREATHS. Vital Signs: 03/11 21:38 BP 115 / 83; Pulse 110; Resp 24; Temp 102.2; Pulse Ox 96% on R/A; Weight 74.84 kg; bm8 Height 5 ft. 3 in. ; Pain 0/10; 23:00 BP 115 / 77; Pulse 104; Resp 26; Temp 101; Pulse Ox 97% ; Pain 0/10; bm8 03/12 00:27 BP 96 / 80; Pulse 100; Resp 22; Temp 98.3; Pulse Ox 100% on 2 lpm NC; Pain 0/10; 8 03/11 21:38 Body Mass Index 29.23 (74.84 kg, 160.02 cm) [facility] 03/11 21:38 Pain Scale: Adult bm8 23:00 Pain Scale: Adult bm8 03/12 00:27 Pain Scale: Adult bm8 Mcintyre Coma Score: 03/11 23:00 Eye Response: spontaneous(4). Motor Response: obeys commands(6). Verbal Response: bm8 oriented(5). Total: 15. 03/12 00:27 Eye Response: spontaneous(4). Motor Response: obeys commands(6). Verbal Response: bm8 oriented(5). Total: 15. ED Course: 03/11 21:38 Patient arrived in ED. rv1 21:38 Arm band placed on right wrist. Patient placed in an exam room, on a stretcher, on bm8 indoor sports centre manager, on pulse oximetry. EKG completed in triage. Results shown to MD. EKG done per protocol. Performed by ED Staff. 21:40 Initial lab(s) drawn, by me, sent to lab. First set of blood cultures drawn by me, EKG bm8 done, by ED staff, reviewed by Blake Ortega MD. Inserted saline lock: 18 gauge in right antecubital area, using aseptic technique. Blood collected. 21:41 Blake Watson PA is PHCP. cp 21:41 Blake Ortega MD is Attending Physician. cp 21:53 Jaiden Miguel, RN is Primary Nurse. bm8 21:56 Triage completed. bm8 22:00 Second set of blood cultures drawn by me. bm8 23:40 CT Head Brain wo Cont In Process Unspecified. EDMS 23:57 Jatin Magaña MD is Hospitalizing Provider. cp 03/12 00:23 REPEAT LACTATE SENT. Oxygen administration via nasal cannula \T\ 2L/min Response to bm8 oxygen therapy: symptoms improved. 00:27 Patient has correct armband on for positive identification. Placed in gown. Bed in low bm8 position. Call light in reach. Side rails up X 1. Adult w/ patient. Provided Education on: NEED FOR ADMIT. Client placed on continuous cardiac and pulse oximetry monitoring. NIBP monitoring applied. video specialist on. Pulse ox on. NIBP on. Door closed. Noise minimized. Lights dimmed. Verbal reassurance given. Head of bed elevated. 00:27 No provider procedures requiring assistance completed. Maintain EMS IV. Dressing bm8 intact. Good blood return noted. Site clean \T\ dry. Gauge \T\ site: 18G LAC. 01:02 Patient admitted, IV remains in place. bm8 Administered Medications: 03/11 22:07 CANCELLED (Physician Discretion): ns 0.9% 1000 ml IV at 1 bolus Per protocol; 1000 mL cp bolus 22:27 Drug: Meropenem IV 1 grams IV at calculated rate once; (mix in NS 100 mL) Route: IV; bm8 Rate: calculated rate; Site: left antecubital; 03/12 00:11 Follow up: Response: No adverse reaction; IV Status: Completed infusion; IV Intake: bm8 100ml 03/11 22:28 Drug: Acetaminophen PO 1000 mg PO once Route: PO; bm8 03/12 00:11 Follow up: Response: No adverse reaction bm8 03/11 22:28 Drug: NS 0.9% IV 1000 ml IV at 1 bolus Per protocol; 1000 mL bolus Route: IV; Rate: 1 bm8 bolus; Site: right antecubital; 03/12 00:11 Follow up: Response: No adverse reaction; IV Status: Completed infusion; IV Intake: bm8 1000ml 00:10 Drug: NS 0.9% IV (30 ml/kg) 30 ml/kg IV at bolus once; Sepsis Protocol Route: IV; Rate: bm8 bolus; Site: right antecubital; 01:01 Follow up: IV Status: Infusion continued bm8 00:10 Drug: levofloxacin IVPB 750 mg 150 ml IVPB once over 90 mins Volume: 150 ml; Route: bm8 IVPB; Infused Over: 90 mins; Site: left antecubital; 01:01 Follow up: IV Status: Infusion continued bm8 00:30 Drug: Potassium PO Effervescent Tablet 50 mEq PO once; dissolve in 4 ounces of water or bm8 juice Route: PO; 01:02 Follow up: Response: No adverse reaction bm8 Medication: 00:27 VIS not applicable for this client. bm8 Intake: 00:11 IV: 100ml; Total: 100ml. bm8 00:11 IV: 1000ml; Total: 1100ml. bm8 Outcome: 03/11 23:57 Decision to Hospitalize by Provider. cp 03/12 01:02 Admitted to Tele accompanied by nurse, via stretcher, room 406, bm8 Condition: stable Instructed on the need for admit, 01:03 Patient left the ED. bm8 Signatures: Dispatcher [employer] EDMS Blake Watson PA PA cp Villegas, Rebecca rv1 Jaiden Miguel, RN RN bm8 Corrections: (The following items were deleted from the chart) 03/11 23:39 21:38 BP 115 / 83; Pulse 110bpm; Resp 24bpm; Pulse Ox 96% RA; Temp 102.2F; Pain 0/10, bm8 Adult; bm8
--- NOTE | 2024-03-11 23:58 | EDPHYS ---
Physician Documentation [facility] Name: Abebe Bueno Age: 63 yrs Sex: Male : 1960 Arrival Date: 03/11/2024 Time: 21:34 Bed 14 Private MD: ED Physician Blake Ortega HPI: 03/11 22:10 This 63 yrs old Male presents to ER via EMS with complaints of Fever. cp 22:10 The patient reports fever, with an emergency department temperature of 102.2 degrees cp Fahrenheit. Onset: The symptoms/episode began/occurred today. 22:10 Associated signs and symptoms: Pertinent positives: weakness, Pertinent negatives: cp altered mental status, cough, diarrhea. 22:10 Patient is a 63-year-old male with past medical history significant for diabetes, cp hypertension and a stroke. Patient returns to the emergency department this evening after being seen earlier today for headache. He complains of fever, chills and reports having a prostate biopsy performed by Dr. Cooper yesterday. Historical: - Allergies: 21:56 No Known Allergies; bm8 - Home Meds: 21:56 carvedilol 12.5 mg oral tablet [Active]; metformin 500 mg Oral Tablet, Extended Release bm8 24 hr 1 tab 2 times per day [Active]; Flexeril Oral 10 mg [Active]; nifedipine 90 mg Oral Tablet, Extended Release 24 hr 1 tab [Active]; aspirin 81 mg Oral capsule 1 cap [Active]; calcium citrate Oral [Active]; Cipro 500 mg Oral tablet 1 tab 2 times per day [Active]; hydrochlorothiazide 25 mg Oral tablet [Active]; butalbital/apap/ca 50/325 [Active]; - PMHx: 21:56 Cerebrovascular accident; Diabetes - NIDDM; Hypertension; bm8 - PSHx: 21:56 prostate biopsy (Hypertension); bm8 - Immunization history:: Adult Immunizations unknown. - Infectious Disease History:: Denies. - Social history:: Smoking status: unknown. ROS: 22:15 Constitutional: Positive for chills, fever, cp 22:15 Cardiovascular: Negative for chest pain, cp 22:15 Respiratory: Negative for cough, wheezing, 22:15 Abdomen/GI: Negative for abdominal pain, vomiting, diarrhea, constipation, 22:15 Back: Negative for pain at rest, pain with movement, Exam: 22:12 ECG was reviewed by the Attending Physician. cp 22:20 Constitutional: The patient appears in no acute distress, alert, awake, cp non-diaphoretic, non-toxic, well developed, well nourished, uncomfortable, 22:20 Head/Face: Normocephalic, atraumatic. cp 22:20 Eyes: Periorbital structures: appear normal, Pupils: equal, round, and reactive to light and accomodation, Extraocular movements: intact throughout, Conjunctiva: normal, no exudate, no injection, Sclera: no appreciated abnormality, Lids and lashes: appear normal, bilaterally, 22:20 ENT: External ear(s): are unremarkable, Nose: is normal, Mouth: Lips: moist, Oral mucosa: pink and intact, moist, Posterior pharynx: Airway: no evidence of obstruction, patent, 22:20 Neck: ROM/movement: is normal, is supple, without pain, no range of motions limitations, no meningismus, no nuchal rigidity, 22:20 Chest/axilla: Inspection: normal, Palpation: is normal, no crepitus, no tenderness, 22:20 Cardiovascular: Rate: tachycardic, Rhythm: regular, Edema: is not appreciated, JVD: is not appreciated, 22:20 Respiratory: the patient does not display signs of respiratory distress, Respirations: normal, no use of accessory muscles, no retractions, labored breathing, is not present, Breath sounds: are clear throughout, no decreased breath sounds, no stridor, no wheezing, 22:20 Abdomen/GI: Inspection: obese Bowel sounds: active, all quadrants, Palpation: soft, in all quadrants, mild abdominal tenderness, in the right lower quadrant and left lower quadrant, rebound tenderness, is not appreciated, involuntary guarding, is not appreciated, 22:20 Back: CVA tenderness, is absent, 22:20 Skin: no rash present. 22:20 Neuro: Orientation: to person, place \T\ time. Mentation: is normal, Motor: no acute changes, Sensation: no acute changes, Vital Signs: 21:38 BP 115 / 83; Pulse 110; Resp 24; Temp 102.2; Pulse Ox 96% on R/A; Weight 74.84 kg; bm8 Height 5 ft. 3 in. ; Pain 0/10; 23:00 BP 115 / 77; Pulse 104; Resp 26; Temp 101; Pulse Ox 97% ; Pain 0/10; bm8 03/12 00:27 BP 96 / 80; Pulse 100; Resp 22; Temp 98.3; Pulse Ox 100% on 2 lpm NC; Pain 0/10; bm8 03/11 21:38 Body Mass Index 29.23 (74.84 kg, 160.02 cm) 8 03/11 21:38 Pain Scale: Adult bm8 23:00 Pain Scale: Adult bm8 03/12 00:27 Pain Scale: Adult bm8 Michelle Coma Score: 03/11 23:00 Eye Response: spontaneous(4). Motor Response: obeys commands(6). Verbal Response: bm8 oriented(5). Total: 15. 03/12 00:27 Eye Response: spontaneous(4). Motor Response: obeys commands(6). Verbal Response: bm8 oriented(5). Total: 15. MDM: 03/11 21:41 Patient medically screened. 03/12 00:00 Data reviewed: vital signs, nurses notes, lab test result(s), EKG, I have discussed the patient's presentation/case with the attending Emergency Department Physician; and as a result, I will admit patient. 00:00 Differential diagnosis: viral Infection, bacterial infection, bronchitis, pneumonia cp sepsis, prostatitis. Management of patient was discussed with the following: Hospitalist: DR Magaña will admit after discussion. Independent interpretation of the following test(s) in the Emergency Department EKG: See my EKG interpretation above. Care significantly affected by the following chronic conditions: Diabetes, Hypertension. Counseling: I had a detailed discussion with the patient and/or guardian regarding the historical points, exam findings, and any diagnostic results supporting the discharge/admit diagnosis, lab results, radiology results, the need for further work-up and treatment in the hospital. Response to treatment: the patient's symptoms have markedly improved after treatment, and as a result, I will admit patient. 03/11 22:07 Order name: Blood Culture Adult (2) 03/11 22:07 Order name: CBC with Diff; Complete Time: 23:09 cp 03/11 23:10 Interpretation: Normal except: WBC 3.80; RBC 4.31; HGB 12.4; HCT 37.1; PLT 120; RDW cp 15.7; GABRIELLA% 95.9; LYM% 2.4; MN% 1.5; LYMA 0.1. 03/11 22:07 Order name: CMP; Complete Time: 23:09 cp / 23:10 Interpretation: Normal except: K 3.2; GLUC 143; BUN 23; CRE 1.40; GFR 56; CA 8.1; ALB cp 3.0; A/G 0.9. 03/11 22:07 Order name: Lactate w/ 2H reflex if indic.; Complete Time: 23:15 cp / 23:15 Interpretation: Reviewed. cp 03/11 22:07 Order name: Protime (+inr); Complete Time: 23:09 cp 03/11 22:07 Order name: Ptt, Activated; Complete Time: 23:09 cp 03/11 22:07 Order name: Urinalysis w/ reflexes; Complete Time: 04:46 cp 03/11 22:07 Order name: Troponin High Sensitivity; Complete Time: 23:09 cp 03/12 00:19 Order name: CBC with Automated Diff EDMS 03/12 00:19 Order name: CBC with Automated Diff EDMS 03/12 00:19 Order name: Comprehensive Metabolic Panel EDMS 03/12 00:19 Order name: Comprehensive Metabolic Panel EDMS 03/12 00:19 Order name: Urinalysis w/ reflexes EDMS 03/11 23:23 Order name: CT Head Brain wo Cont cp 03/12 00:16 Order name: Abdomen EDMS 03/11 22:07 Order name: Accucheck; Complete Time: 22:13 cp 03/11 22:07 Order name: Cardiac monitoring; Complete Time: 22:13 cp 03/11 22:07 Order name: EKG - Nurse/Tech; Complete Time: 22:13 cp 03/11 22:07 Order name: IV Saline Lock - Large Bore; Complete Time: 22:13 cp 03/11 22:07 Order name: Labs collected and sent; Complete Time: 22:13 cp 03/11 22:07 Order name: O2 Per Protocol; Complete Time: 22:13 cp 03/11 22:07 Order name: O2 Sat Monitoring; Complete Time: 22:13 cp 03/11 22:07 Order name: Vital Signs; Complete Time: 22:13 cp EC/03 22:12 Rate is 108 beats/min. Rhythm is regular. MO interval is normal. QRS interval is cp normal. QT interval is normal. Interpreted by me. Reviewed by me. Administered Medications: 22:07 CANCELLED (Physician Discretion): ns 0.9% 1000 ml IV at 1 bolus Per protocol; 1000 mL cp bolus 22:27 Drug: Meropenem IV 1 grams IV at calculated rate once; (mix in NS 100 mL) Route: IV; bm8 Rate: calculated rate; Site: left antecubital; 03/12 00:11 Follow up: Response: No adverse reaction; IV Status: Completed infusion; IV Intake: bm8 100ml 03/11 22:28 Drug: Acetaminophen PO 1000 mg PO once Route: PO; bm8 03/12 00:11 Follow up: Response: No adverse reaction bm8 03/11 22:28 Drug: NS 0.9% IV 1000 ml IV at 1 bolus Per protocol; 1000 mL bolus Route: IV; Rate: 1 bm8 bolus; Site: right antecubital; 03/12 00:11 Follow up: Response: No adverse reaction; IV Status: Completed infusion; IV Intake: bm8 1000ml 00:10 Drug: NS 0.9% IV (30 ml/kg) 30 ml/kg IV at bolus once; Sepsis Protocol Route: IV; Rate: bm8 bolus; Site: right antecubital; 01:01 Follow up: IV Status: Infusion continued bm8 00:10 Drug: levofloxacin IVPB 750 mg 150 ml IVPB once over 90 mins Volume: 150 ml; Route: bm8 IVPB; Infused Over: 90 mins; Site: left antecubital; 01:01 Follow up: IV Status: Infusion continued bm8 00:30 Drug: Potassium PO Effervescent Tablet 50 mEq PO once; dissolve in 4 ounces of water or bm8 juice Route: PO; 01:02 Follow up: Response: No adverse reaction bm8 Disposition Summary: 03/11/24 23:57 Hospitalization Ordered Notes: Hospitalization Status: Inpatient Admission cp Provider: Jatin Magaña cp [facility] cp Condition: Fair cp Problem: new cp Symptoms: have improved cp Bed/Room Type: Standard cp Room Assignment: 406(03/12/24 00:24) rv1 Diagnosis - Severe sepsis without septic shock cp - UTI/ Urinary tract infection, site not specified cp Forms: - Medication Reconciliation Form cp - SBAR form cp - Leadership Thank You Letter cp Signatures: Dispatcher [employer] EDMS Blake Watson PA PA cp Yvette Villalba rv1 Jaiden Miguel, RN RN bm8 Corrections: (The following items were deleted from the chart) 03/11 22:07 22:07 NS 0.9% IV 1000 ml IV at 1 bolus Per protocol; 1000 mL bolus ordered. cp cp 22: 22:07 BLOOD CULTURE*+BA.LAB.BRZ ordered. EDMS EDMS 22: 22:07 CBC+H.LAB.BRZ ordered. EDMS EDMS 22: 22:07 COMPREHENSIVE METABOLIC PANEL+C.LAB.BRZ ordered. EDMS EDMS 22: 22:07 LACTATE+C.LAB.BRZ ordered. EDMS EDMS 22: 22:07 PROTIME (+INR)+COAG.LAB.BRZ ordered. EDMS EDMS 22: 22:07 PTT, ACTIVATED+COAG.LAB.BRZ ordered. EDMS EDMS 22: 22:07 Urinalysis+U.LAB.BRZ ordered. EDMS EDMS 22: 22:07 Troponin High Sensitivity+C.LAB.BRZ ordered. EDMS EDMS 22:10 22:07 Chest Single View+RAD.RAD.BRZ ordered. EDMS EDMS 03/12 00:24 03/11 23:57 cp rv1
--- NOTE | 2024-03-12 00:12 | P.HP ---
Certification for Inpatient Patient admitted to: Inpatient With expected LOS: >2 Midnights Practitioner: I am a practitioner with admitting privileges, knowledge of patient current condition, hospital course, and medical plan of care. Services: Services provided to patient in accordance with Admission requirements found in Title 42 Section 412.3 of the Code of Federal Regulations Patient History Date of Service: 03/12/24 Reason for admission: Fever History of Present Illness: 63-year-old male with a past medical history of hypertension, hyperlipidemia, diabetes, CVA who had a recent prostate biopsy came to ER with fever and tachycardia Patient underwent prostate biopsy by Dr. Cooper yesterday. Denies any nausea vomiting or diarrhea. Complains of diffuse abdominal pain especially in the lower abdomen. Fever intermittent ,subjective, relieved by Tylenol. Denies any chest pain or shortness of breath. No sick contacts. Patient was assessed in the ER and was admitted for further management CT of the abdomen pelvis was done which shows proctocolitis. Allergies No Known Allergies Allergy (Verified 03/12/24 01:44) Home medications list reviewed: Yes Home Medications: Aspirin [Aspirin EC] 81 mg PO DAILY 03/12/24 Butalbit/Acetamin/Caff/Codeine [Wccvdx-Msfigtzs-Bdy-Cod 50-325] 1 cap PO Q4H PRN 03/12/24 Carvedilol [Coreg] 12.5 mg PO BID 03/12/24 Ciprofloxacin HCl 500 mg PO Q12H 03/12/24 Cyclobenzaprine HCl 10 mg PO BEDTIME PRN 03/12/24 Metformin ER [Glucophage ER*] 500 mg PO BID 03/12/24 NIFEdipine [Nifedipine ER] 90 mg PO DAILY 03/12/24 hydroCHLOROthiazide [Hydrochlorothiazide] 25 mg PO DAILY 03/12/24 - Past Medical/Surgical History Past Medical History: Reviewed- Non-Contributory -: Diabetes, hypertension, CVA Past Surgical History: Reviewed- Non-Contributory -: Prostate biopsy - Family History Family History: Reviewed- Non-Contributory - Social History Smoking Status: Never smoker Review of Systems 10-point ROS is otherwise unremarkable Physical Examination - Vital Signs Temperature: 99.2 F Blood Pressure: 116/68 Pulse: 92 Respirations: 18 Pulse Ox (%): 94 - Physical Exam General: Alert, In no apparent distress, Oriented x3, Mild distress, Obese HEENT: Atraumatic, Normocephalic Neck: Supple Respiratory: Clear to auscultation bilaterally, Normal air movement Cardiovascular: No edema, Regular rate/rhythm, Normal S1 S2 Capillary refill: <2 Seconds Gastrointestinal: W/out hepatosplenomegaly (Pain located in lower abdomen ), No masses, Tenderness Musculoskeletal: No clubbing, No swelling Integumentary: No rashes, No breakdown Neurological: Normal speech, Normal strength at 5/5 x4 extr, Cranial nerves 3-12 intact, Normal reflexes 2+ Lymphatics: No axilla or inguinal lymphadenopathy - Studies Laboratory Data (last 24 hrs) 03/11/24 03/11/24 03/11/24 22:00 22:00 22:00 WBC 3.80 L Hgb 12.4 L D Hct 37.1 L Plt Count 120 L PT 16.9 H INR 1.56 APTT 28.6 Sodium 136 Potassium 3.2 L BUN 23 H Creatinine 1.40 H Glucose 143 H Total Bilirubin 0.9 AST 28 ALT 33 Alkaline Phosphatase 71 Assessment and Plan - Problems (Diagnosis) (1) Proctocolitis Current Visit: Yes Status: Acute Plan: Proctocolitis Pain control Started on IV antibiotic IV hydration Monitor closely under telemetry Keep n.p.o. for now Severe sepsis secondary to proctocolitis Fever spikes up to 102.2 Tylenol as needed Started on IV hydration Will obtain cultures Started on IV antibiotic Change antibiotic as per sensitivity Hypertension Continue home medications Started on hydralazine as needed Diabetes Insulin sliding scale Accu-Chek before every meal and at bedtime GI/DVT prophylaxis Advanced directive full code - Advance Directives Does patient have a Living Will: No Does patient have a Durable POA for Healthcare: No - Code Status/Comfort Care Code Status: Full Code Time Spent Managing Pts Care (In Minutes): 48
[2024-03-12 00:44] LABS: Specific Gravity 1.019 (1.005-1.030); Sqamous Epithelial None Seen /HPF (None Seen); Urine Bacteria None Seen /HPF (<20); Urine Bilirubin NEGATIVE (Negative); Urine Blood 3+ (OVER) (Negative); Urine Clarity Extremely Turbid (Clear); Urine Color Dark-Brown (Yellow); Urine Culture Reflex Order REFLEXED; Urine Glucose NEGATIVE (Negative); Urine Ketones NEGATIVE (Negative); Urine Microscopic Reflex YN ORDER UMIC; Urine Mucus 3+ /HPF (None Seen); Urine Nitrite NEGATIVE (Negative); Urine Protein 2+ (Negative); Urine RBC >50 /HPF (None Seen); Urine Urobilinogen Normal (Normal); Urine WBC >50 /HPF (<5); Urine WBC Clump Many /HPF (None Seen); Urine pH 5.5 (5.0-7.0)
[2024-03-12] MEDS: Meropenem 500 MG in NA CHLORIDE 0.9% 100 ML IV SCH ×3 (01:00→12:31)
[2024-03-12] MEDS: NA CHLORIDE 0.9% 1,000 ML IV SCH (02:11)
[2024-03-12] MEDS: NA CHLORIDE 0.9% 1,000 ML IV ONE (02:46)
[2024-03-12] MEDS: INSULIN REGULAR (HUMAN) 100 UNIT/ML SQ SCH ×2 (07:30→16:16)
[2024-03-12] MEDS: ENOXAPARIN 40 MG/0.4 ML SQ SCH (09:50)
[2024-03-12] MEDS: Meropenem 500 MG/100 ML BAG IV SCH (10:30)
[2024-03-12 12:25] LABS: Specific Gravity 1.024 (1.005-1.030); Sqamous Epithelial None Seen /HPF (None Seen); Urine Bacteria None Seen /HPF (<20); Urine Bilirubin NEGATIVE (Negative); Urine Blood 3+ (OVER) (Negative); Urine Clarity Extremely Turbid (Clear); Urine Color Colorless (Yellow); Urine Culture Reflex Order REFLEXED; Urine Glucose NEGATIVE (Negative); Urine Ketones 1+ (Negative); Urine Microscopic Reflex YN ORDER UMIC; Urine Mucus Slight /HPF (None Seen); Urine Nitrite NEGATIVE (Negative); Urine Protein 1+ (Negative); Urine RBC >50 /HPF (None Seen); Urine Urobilinogen Normal (Normal); Urine WBC 20-50 /HPF (<5); Urine Yeast (Budding) Trace /HPF (None Seen)
--- NOTE | 2024-03-12 12:38 | P.PN ---
Date of Service: 03/12/24 Patient seen and examined. No fever since admission He states he is feeling better. Blood pressure has been stable Diagnosis Sepsis Proctocolitis Status post recent prostate biopsy. Plan: Aggressive IV antibiotics IV fluid Follow cultures. Analgesics as needed Clear liquid diet.
[2024-03-12] MEDS: ONDANSETRON 4 MG/2 ML VIAL IV PRN (14:15)
[2024-03-12] MEDS: ACETAMINOPHEN 325 MG TABLET PO PRN (14:17)
[2024-03-12 15:01] VITALS: BMI 29.7
[2024-03-12] MEDS ORDERED: INSULIN REGULAR (HUMAN) 100 UNIT/ML SQ SCH (16:30)
[2024-03-12] MEDS: Meropenem 1,000 MG in NA CHLORIDE 0.9% 100 ML IV SCH (17:39)
--- NOTE | 2024-03-12 22:02 | RAD REPORT ---
EXAM DESCRIPTION: RAD - Chest Single View - 03/12/2024 9:54 pm CLINICAL HISTORY: SOB COMPARISON: Chest Single View dated 03/11/2024; Chest Single View dated 12/31/2018; Head Brain Wo Cont dated 03/11/2024; Abdomen Pelvis W Contrast dated 03/12/2024 FINDINGS: Lines: None. Lungs: Low lung volumes with mild basilar opacities. Pleural: No significant pleural effusions or pneumothorax. Cardiac: The heart size is within normal limits. Mediastinum: Within normal limits. Bones: No acute fractures. Other: None IMPRESSION: Decreased lung volumes and likely mild basilar atelectasis.
--- NOTE | 2024-03-12 23:04 | RAD REPORT ---
EXAM DESCRIPTION: CT - Head Brain Wo Cont - 03/12/2024 10:39 am CLINICAL HISTORY: 63-year-old male with weakness. COMPARISON: None. TECHNIQUE: CT brain without contrast. This exam was performed according to our departmental dose opt imization program which includes use of automated exposure control, adjustment of the mA and/or kV ac cording to patient size and/or use of iterative reconstruction technique. FINDINGS: Multifocal regions of patchy hypoattenuation are present in a subcortical and periventricu lar deep white matter distribution, nonspecific; however, most likely represent small vessel ischemic disease, age indeterminate. Age-indeterminate, however chronic appearing subcentimeter focus of hypoattenuation within the right thalamus and left basal ganglia. The ventricles, sulci, and cisterns are symmetric and unremarkable. The wilson-white matter different iation is preserved. There is no mass effect, midline shift, intra- or extra-axial fluid collection /acute hemorrhage. The osseous structures are unremarkable. The paranasal sinuses and mastoid air cells are clear. IMPRESSION: 1. No acute intracranial abnormalities. Nonspecific white matter change most likely sm all vessel ischemic disease, age indeterminate. 2. CT is insensitive for early evaluation of acute stroke. If there is clinical concern for acute ischemia, an MRI may be considered. Electronically signed by: Yancy Fisher MD 03/12/2024 12:50 AM CDT Due to temporary technical issues with the PACS/Fluency reporting system, reports are being signed by the in house radiologists without review as a courtesy to insure prompt reporting. The interpreting radiologist is fully responsible for the content of the report.
--- NOTE | 2024-03-12 23:17 | RAD REPORT ---
EXAM DESCRIPTION: CT - Abdomen Pelvis W Contrast - 03/12/2024 10:39 am Exam date: March 12, 2024 COMPARISON: None CLINICAL HISTORY: History of prostate biopsy TECHNIQUE: Multiple helical axial images were obtained through the abdomen and pelvis using intraven ous contrast. Coronal and sagittal reformatted images were obtained. All CT scans at this facility use dose modulation, iterative reconstruction, and/or weight-based dosi ng when appropriate to reduce radiation dose to as low as reasonably achievable. FINDINGS: Lung bases: Appear unremarkable. Liver: Homogenous attenuation is noted. Gallbladder/biliary: There is a small cystic structure in the gallbladder fossa which could represent the partially contracted gallbladder or gallbladder remnant. Common bile duct is dilated measuring 1 cm in width. There is a 0.7 cm rounded density in the distal common bile duct suggestive of a stone (series 201, image 30). Pancreas: Unremarkable. No evidence of ductal enlargement. Spleen: Appears unremarkable. No splenomegaly. Adrenals: Unremarkable. Kidneys and ureters: No evidence of hydronephrosis. Normal enhancement. There are multiple low atte nuating cysts in both kidneys with largest measuring 3.8 cm. There are 2 stones at the inferior pole of the right kidney measuring up to 0.5 cm. There is a 0.6 cm stone at the inferior pole of the left kidney. Bladder: Unremarkable. Pelvic organs: Prostate appears enlarged. Bowel: There is a mildly thickened appearance of the rectum. Perirectal fat stranding is present. Col onic diverticula are present. No evidence of bowel obstruction. Appendix appears unremarkable. Vasculature: Aortoiliac atherosclerosis is present. Peritoneum: No free air. No significant free fluid. Lymph nodes: Unremarkable. Soft tissues: Unremarkable. Bones: Degenerative changes of the spine noted. IMPRESSION: 1. Mildly thickened appearance of the rectum with perirectal fat stranding suggestive of proctitis. 2. Dilatation of the common bile duct with suggestion of choledocholithiasis. 3. Bilateral nephrolithiasis. 4. Enlarged prostate. Electronically signed by: Alirio Garay MD 03/12/2024 03:39 AM CDT Due to temporary technical issues with the PACS/Fluency reporting system, reports are being signed by the in house radiologists without review as a courtesy to insure prompt reporting. The interpreting radiologist is fully responsible for the content of the report.
[2024-03-13] MEDS: VANCOMYCIN 1 GM in NA CHLORIDE 0.9% 250 ML IVPB SCH (04:27)
[2024-03-13] MEDS: VANCOMYCIN 1 GM/VIAL ONE (04:44)
[2024-03-13] MEDS: NA CHLORIDE 0.9% 250 ML ONE (04:44)
[2024-03-13] MEDS: VANCOMYCIN 500 MG/VIAL ONE (04:45)
[2024-03-13 04:55] LABS: Absolute Eosinophils 0.1 K/uL (0-0.5); Absolute Lymphocytes (CBC) 0.4 K/uL (0.7-4.9); Absolute Monocytes 0.4 K/uL (0.1-1.3); Absolute Neutrophil 7.3 K/uL (1.8-8.0); Basophils % 0.2 % (0-1.3); Eosinophils % 0.7 % (0-4.4); Hematocrit 36.6 % (39.6-49.0); Hemoglobin 12.3 g/dL (13.6-17.9); MCH 28.6 pg (27.0-35.0); MCHC 33.5 g/dL (32.0-36.0); MCV 85.6 fL (80-100); MPV 8.3 fL (7.6-11.3); Monocytes % 4.4 % (3.3-12.3); Neutrophils % 89.7 % (41.7-73.7); Nucleated Red Blood Cells % 0.1 % (0-0); Platelets 96 thou/uL (152-406); RBC Red Blood Cell Count 4.28 M/uL (4.33-5.43); Red Cell Distribution Width 16.4 % (12.1-15.2)
[2024-03-13] MEDS: VANCOMYCIN 1.25 GM in NA CHLORIDE 0.9% 250 ML IVPB SCH (04:58)
[2024-03-13 05:15] LABS: Albumin 2.5 g/dL (3.4-5.0); Albumin/Globulin Ratio 0.8 (1.1-1.8); Anion Gap 8.8 mEq/L (5.0-15.0); Bilirubin Total 0.7 mg/dL (0.2-1.0); Globulin 3.3 g/dL (2.3-3.5); Potassium 3.8 mEq/L (3.5-5.1); Protein, Total 5.8 g/dL (6.4-8.2)
[2024-03-13 08:16] LABS: Blood Morphology Comment NOT SEEN (NOT SEEN); Dohle Bodies PRESENT; Platelet Estimate DECR; White Blood Cell Scan OK (OK)
--- NOTE | 2024-03-13 12:46 | P.PN ---
Subjective Date of Service: 03/13/24 Chief Complaint: Fever Physical Examination - Vital Signs Temperature: 98.6 F Blood Pressure: 137/83 Pulse: 81 Respirations: 18 Pulse Ox (%): 96 Assessment And Plan - Plan Physical Exam General: Alert, In no apparent distress, Oriented x3, Mild distress, Obese HEENT: Atraumatic, Normocephalic Neck: Supple Respiratory: Clear to auscultation bilaterally, Normal air movement Cardiovascular: No edema, Regular rate/rhythm, Normal S1 S2 Capillary refill: <2 Seconds Gastrointestinal: W/out hepatosplenomegaly (Pain located in lower abdomen ), No masses, Tenderness Musculoskeletal: No clubbing, No swelling Integumentary: No rashes, No breakdown Neurological: Normal speech, Normal strength at 5/5 x4 extr, Cranial nerves 3-12 intact, Normal reflexes 2+ Lymphatics: No axilla or inguinal lymphadenopathy Assessment and Plan Diagnosis Proctocolitis Sepsis Gram-negative bacteremia Recent prostate biopsy. Hypertension Diabetes mellitus type 2 Plan Proctocolitis Sepsis Gram-negative bacteremia Blood culture is growing gram-negative rods, organism identification and antibiotic sensitivities pending. Patient has been maintaining fever Continue IV Merrem for Continue IV hydration Monitor closely under telemetry Clear liquid diet. Tylenol as needed Hypertension Hold antihypertensives for now given sepsis Diabetes melitis type II Insulin sliding scale Accu-Chek. Thrombocytopenia There is a concern for heparin-induced thrombocytopenia. Discontinue Lovenox for DVT prophylaxis Monitor CBC DVT prophylaxis: SCD Advanced directive: full code
[2024-03-13] MEDS: ALBUTEROL 2.5 MG/3 ML NEB SOL NEB PRN (15:30)
[2024-03-13] MEDS: IPRATROPIUM BROM 0.5MG/2.5ML NEB PRN (15:30)
[2024-03-13] MEDS ORDERED: VANCOMYCIN 1.5 GM in NA CHLORIDE 0.9% 500 ML IVPB SCH (20:00)
[2024-03-14] MEDS: CEFTRIAXONE 1,000 MG in NA CHLORIDE 0.9% 50 ML IVPB SCH (08:23)
[2024-03-14] MEDS: CEFTRIAXONE 1,000 MG in NA CHLORIDE 0.9% 50 ML IVPB ONE (11:21)
[2024-03-14] MEDS: NA CHLORIDE 0.9% 100 ML ONE (12:03)
[2024-03-14] MEDS: Meropenem 1,000 MG in NA CHLORIDE 0.9% 100 ML IV SCH (12:10)
--- NOTE | 2024-03-14 14:45 | EKG ---
Test Date: 2024-03-11 Test Time: 22:07:54 Train Attendant: SAMANTA MEASUREMENT RESULTS: Intervals: Rate: 108 LA: 166 QRSD: 90 QT: 328 QTc: 439 [place]: P: 48 LA: 166 QRS: 49 T: 40 INTERPRETIVE STATEMENTS: Sinus tachycardia Otherwise normal ECG Compared to ECG 12/31/2018 09:43:45 Sinus rhythm no longer present T-wave abnormality no longer present Possible ischemia no longer present Electronically Signed On 03-14-24 14:39:37 CDT by Sajan Walters
--- NOTE | 2024-03-14 14:46 | EKG ---
Test Date: 2024-03-11 Test Time: 17:18:15 Coffee Weigher: ALP MEASUREMENT RESULTS: Intervals: Rate: 112 ND: 150 QRSD: 88 QT: 336 QTc: 458 [place]: P: 39 ND: 150 QRS: 27 T: 39 INTERPRETIVE STATEMENTS: Sinus tachycardia Otherwise normal ECG Compared to ECG 12/31/2018 09:43:45 Sinus rhythm no longer present T-wave abnormality no longer present Possible ischemia no longer present Electronically Signed On 03-14-24 14:39:50 CDT by Sajan Walters
--- NOTE | 2024-03-14 15:21 | RAD REPORT ---
EXAM DESCRIPTION: RAD - Chest Single View - 03/14/2024 3:16 pm CLINICAL HISTORY: Pneumonia Chest pain. COMPARISON: Chest Single View dated 03/12/2024; Chest Single View dated 03/11/2024; Chest Single View da ricardo 12/31/2018 FINDINGS: Portable technique limits examination quality. The lungs are grossly clear. The heart is normal in size. No displaced fractures. IMPRESSION: No acute intrathoracic process suspected.
--- NOTE | 2024-03-14 15:56 | P.PN ---
Subjective Date of Service: 03/14/24 Chief Complaint: Fever No issues overnight. Patient reports significant improvement in his abdominal pain. He is complaining of shortness of breath. Family reports patient is able to ambulate with minimal assistance. No reported fever over the past 24 hours. He has been tolerating clear liquid diet. Physical Examination - Vital Signs Temperature: 98.2 F Blood Pressure: 141/88 Pulse: 79 Respirations: 22 Pulse Ox (%): 97 - Studies Microbiology Data (last 24 hrs): 03/11/24 21:40 Blood - Blood Aerobic Blood Culture - Final Escherichia Coli 03/11/24 21:40 Blood - Blood Blood Culture Gram Stain - Final 03/11/24 21:40 Blood - Blood Anaerobic Blood Culture - Final Escherichia Coli 03/11/24 21:40 Blood - Blood Gram Stain - Final 03/11/24 22:00 Blood - Blood Aerobic Blood Culture - Final Escherichia Coli 03/11/24 22:00 Blood - Blood Blood Culture Gram Stain - Final 03/11/24 22:00 Blood - Blood Anaerobic Blood Culture - Final Escherichia Coli 03/11/24 22:00 Blood - Blood Gram Stain - Final Assessment And Plan - Plan Physical Exam General: Alert, In no apparent distress, Oriented x3. Neck: Supple Respiratory: Mild bibasilar crackles, Normal air movement Cardiovascular: No edema, Regular rate/rhythm, Normal S1 S2 Gastrointestinal: Nondistended, nontender, normal bowel sounds. Musculoskeletal: No clubbing, No swelling Integumentary: No rashes, No breakdown Neurological: Normal speech, no focal motor deficit. Lymphatics: No axilla or inguinal lymphadenopathy Assessment and Plan Diagnosis Proctocolitis Sepsis Gram-negative bacteremia Recent prostate biopsy. Hypertension Diabetes mellitus type 2 Plan Proctocolitis Sepsis Gram-negative bacteremia Blood culture is growing E. coli. Urine culture from outside admission grew ESBL E. coli Patient has defervesced. Continue IV Merrem. Patient will need at least 7 days of IV Merrem. Infectious disease consulted. Discontinue IV fluid due to complaint of shortness of breath. Diet advanced to full liquid diet. Analgesics as needed. Hypertension Blood pressure is now elevated. Resume home antihypertensive. Diabetes melitis type II Insulin sliding scale Accu-Chek. Thrombocytopenia There is a concern for heparin-induced thrombocytopenia. Lovenox for DVT prophylaxis discontinued. Monitor CBC DVT prophylaxis: SCD Advanced directive: full code
[2024-03-14] MEDS ORDERED: CAFF PO PRN (15:57)
[2024-03-14] MEDS ORDERED: ACETAMIN PO PRN (15:57)
[2024-03-14] MEDS ORDERED: CODEINE PO PRN (15:57)
[2024-03-14] MEDS ORDERED: CYCLOBENZAPRINE 10 MG TAB PO PRN (15:57)
[2024-03-14] MEDS ORDERED: BUTALBIT PO PRN (15:57)
[2024-03-14] MEDS: HYDRALAZINE HCL 20 MG/ML VIAL IV PRN (17:23)
[2024-03-14] MEDS: carvediloL 12.5 MG TAB PO SCH (20:35)
[2024-03-15 03:56] LABS: Absolute Eosinophils 0.2 K/uL (0-0.5); Absolute Lymphocytes (CBC) 0.7 K/uL (0.7-4.9); Absolute Monocytes 0.6 K/uL (0.1-1.3); Basophils % 0.5 % (0-1.3); Eosinophils % 5.1 % (0-4.4); Hematocrit 35.3 % (39.6-49.0); Hemoglobin 12.1 g/dL (13.6-17.9); Lymphocytes % 15.1 % (15.3-44.8); MCH 29.1 pg (27.0-35.0); MCHC 34.3 g/dL (32.0-36.0); MCV 84.8 fL (80-100); MPV 8.6 fL (7.6-11.3); Monocytes % 13.2 % (3.3-12.3); Platelets 110 thou/uL (152-406); RBC Red Blood Cell Count 4.16 M/uL (4.33-5.43); Red Cell Distribution Width 16.1 % (12.1-15.2)
[2024-03-15 04:15] LABS: Neutrophils % 66.1 % (41.7-73.7)
[2024-03-15 04:17] LABS: Albumin 2.5 g/dL (3.4-5.0); Albumin/Globulin Ratio 0.8 (1.1-1.8); Anion Gap 8.3 mEq/L (5.0-15.0); Bilirubin Direct 0.2 mg/dL (0-0.2); Bilirubin Indirect, Calculated 0.4 mg/dL (0.2-0.8); Bilirubin Total 0.6 mg/dL (0.2-1.0); Globulin 3.3 g/dL (2.3-3.5); Potassium 3.3 mEq/L (3.5-5.1); Protein, Total 5.8 g/dL (6.4-8.2)
--- NOTE | 2024-03-15 08:16 | P.CNS ---
Date of Consult: 03/15/24 Reason for Consult: E.coli ESBL bacteremia + UTI Chief Complaint: Fever History of Present Illness: 63 yo M with a PMH of HTN, HLD, Diabetes who presented to the ED with complaints of lower abdominal pain and fevers. He recently underwent prostate biopsy by Dr. Cooper on 03/11. He then reports developing fevers and generalized weakness for which he presented to the ED. Urine culture from 03/11 growing E.coli ESBL. Blood cultures also with E.coli. Infectious disease consulted. Allergies No Known Allergies Allergy (Verified 03/12/24 01:44) Home medications list reviewed: Yes Home Medications: Aspirin [Aspirin EC] 81 mg PO DAILY 03/12/24 Butalbit/Acetamin/Caff/Codeine [Wqcrym-Uykbobit-Bef-Cod 50-325] 1 cap PO Q4H PRN 03/12/24 Carvedilol [Coreg] 12.5 mg PO BID 03/12/24 Ciprofloxacin HCl 500 mg PO Q12H 03/12/24 Cyclobenzaprine HCl 10 mg PO BEDTIME PRN 03/12/24 Metformin ER [Glucophage ER*] 500 mg PO BID 03/12/24 NIFEdipine [Nifedipine ER] 90 mg PO DAILY 03/12/24 hydroCHLOROthiazide [Hydrochlorothiazide] 25 mg PO DAILY 03/12/24 Carvedilol [Coreg] 12.5 mg PO BID 03/14/24 - Past Medical/Surgical History Diabetic: Yes -: Diabetes, hypertension, CVA -: Prostate biopsy -: hernia surgery X2 - Social History Smoking Status: Unknown if ever smoked Alcohol use: No CD- Drugs: No Caffeine use: No Place of Residence: Home Review of Systems 10-point ROS is otherwise unremarkable Respiratory: Shortness of Breath Gastrointestinal: Distention Genitourinary: Hematuria Physical Examination Temp Pulse Resp BP Pulse Ox 97.5 F 73 18 177/98 H 96 03/15/24 04:00 03/15/24 04:00 03/15/24 04:00 03/15/24 04:00 03/15/24 04:00 General: Alert, In no apparent distress, Oriented x3 HEENT: Atraumatic, Normocephalic Neck: Supple Respiratory: Normal air movement, Diminished Cardiovascular: Regular rate/rhythm Gastrointestinal: Normal bowel sounds, No tenderness, Distended Integumentary: No rashes Laboratory, microbiology and imaging data reviewed Conclusions/Impression: Problem List E.coli ESBL bacteremia secondary to urinary tract infection Hypertension Diabetes mellitus type II Sepsis secondary to E.coli ESBL bacteremia d/t complicated urinary tract infection - Urine culture 03/11: Escherichia coli ESBL - Blood culture 03/11: Escherichia coli - Currently on Meropenem (started 03/12) - 24 hour tmax = 100.7F - Leukocytosis resolved. Recommendations - E.coli Bacteremia: continue meropenem IV x 7 days (03/12-03/18). Once completed IV merrem, recommend starting on Bactrim PO x 7 days. - Monitor fever trends - Follow up with Urology Dr. Cooper as outpatient - continue supportive care Case discussed with Dorothy Chappell
--- NOTE | 2024-03-15 08:40 | RAD REPORT ---
EXAM DESCRIPTION: US - Abdomen Exam Limited - 03/15/2024 8:18 am CLINICAL HISTORY: eval CBD / liver Abdominal pain COMPARISON: Abdomen Pelvis W Contrast dated 03/12/2024 FINDINGS: The gallbladder is absent. The common bile duct is enlarged measuring 13 mm with a small s tone likely present in the distal common duct. The liver demonstrates no findings of intrahepatic biliary dilatation. Spleen measures 12 cm. IMPRESSION: Common bile duct is dilated with small stone likely present in the distal common duct. T his would be compatible with choledocholithiasis.
[2024-03-15] MEDS ORDERED: CEFTRIAXONE 2,000 MG in NA CHLORIDE 0.9% 100 ML IV SCH (09:00)
[2024-03-15] MEDS ORDERED: HOME MED 1 EA UNK (Nifedipine [Nifedipine Er] 90 MG Tablet.Er) PO SCH (09:00)
[2024-03-15] MEDS: ASPIRIN EC 81 MG TAB PO SCH (09:21)
[2024-03-15] MEDS: NIFEDIPINE XL 90 MG TABLET PO SCH (09:21)
[2024-03-15] MEDS: hydroCHLOROthiazide 25 MG TAB PO SCH (09:21)
[2024-03-15] MEDS: POTASSIUM CL SA 10 MEQ TAB PO ONE (09:21)
--- NOTE | 2024-03-15 11:31 | P.PN ---
Date of Service: 03/15/24 Subjective: Feeling better today. Breathing more comfortably on room air, but still shallow respirations feels some prostate/groin pain when sitting down otherwise denies pain at rest when laying down. No nausea/vomiting/diarrhea reports feeling bloating after eating/drinking anything and feels bloating caus ing some difficulty breathing - overall improved reports bloody urine output prior to prostate biopsy 100.7 temp overnight ROS: 10 point ROS as noted above, otherwise negative Physical Exam: GEN: Alert, oriented, NAD HEENT: Normal conjunctiva, sclera anicteric CV: Regular rate and rhythm, no edema PulmL audible shallow respirations at rest ABD: Soft, nontender, nondistended Neuro: Normal speech, normal affect vitals reviewed Problem List: Sepsis secondary to Proctocolitis / UTI / E. coli Esbl Bacteremia Recent prostate biopsy hematuria, resolved choledocholithiasis Hypertension Hyperlipidemia NIDDM2 Thrombocytopenia hx prior CVA Sepsis secondary to Proctocolitis / UTI / E. coli Esbl Bacteremia Recent prostate biopsy hematuria, resolved CT head (03/12): no acute intracranial abnormalities. nonspecific white matter changes most likely small vessel ischemic disease. CT abdomen (03/12): mildly thickened appearance of the rectum with perirectal fat stranding suggestive of proctitis. choledocholithiasis. Bilateral nephrolithiasis. Enlarged prostate. CXR (03/14): negative for any acute findings Urine cx (03/11): E. coli Esbl. Blood cx (03/11): E. coli esbl in 4/4 bottles Repeat blood cx (03/12): NGTD Continue merrem (03/12-03/18) for 1 week total then deescalate to PO bactrim x1 week per ID no leukocytosis, +100.7 temp overnight Will need to follow up with urology as outpatient ID consulted Full liquid diet DC IV fluids choledocholithiasis CT on admission with findings concerning for choledocholithiasis abdominal u/s (03/15): choledocholithiasis. Common bile duct is dilated with small stone likely present in the distal common duct. Dr. Mullen, General surgery consulted to eval Hypertension Hyperlipidemia confirm home meds, restart as appropriate NIDDM2 accu-checks, SSI Thrombocytopenia lovenox dc'd given concern for heparin-induced thrombocytopenia. continue SCDs for now Daily labs VTE: SCD for now Code: Full Dispo: Home ~3 days Pending afebrile > 24 hours, surgical recs, breathing improves
[2024-03-16 03:58] LABS: Absolute Eosinophils 0.4 K/uL (0-0.5); Absolute Lymphocytes (CBC) 0.8 K/uL (0.7-4.9); Absolute Monocytes 0.8 K/uL (0.1-1.3); Absolute Neutrophil 2.5 K/uL (1.8-8.0); Basophils % 0.4 % (0-1.3); Eosinophils % 8.4 % (0-4.4); Hematocrit 37.8 % (39.6-49.0); Hemoglobin 12.7 g/dL (13.6-17.9); Lymphocytes % 18.3 % (15.3-44.8); MCH 28.6 pg (27.0-35.0); MCHC 33.6 g/dL (32.0-36.0); MCV 85.2 fL (80-100); MPV 8.2 fL (7.6-11.3); Monocytes % 17.6 % (3.3-12.3); Neutrophils % 55.3 % (41.7-73.7); Nucleated Red Blood Cells % 0.1 % (0-0); Platelets 118 thou/uL (152-406); RBC Red Blood Cell Count 4.44 M/uL (4.33-5.43); Red Cell Distribution Width 16.4 % (12.1-15.2)
[2024-03-16 04:30] LABS: Albumin 2.8 g/dL (3.4-5.0); Albumin/Globulin Ratio 0.8 (1.1-1.8); Anion Gap 8.3 mEq/L (5.0-15.0); Bilirubin Total 0.6 mg/dL (0.2-1.0); Globulin 3.6 g/dL (2.3-3.5); Magnesium 1.8 mg/dL (1.6-2.4); Potassium 3.3 mEq/L (3.5-5.1); Protein, Total 6.4 g/dL (6.4-8.2)
[2024-03-16] MEDS: POTASSIUM CL SA 10 MEQ TAB PO ONE (08:15)
[2024-03-16] MEDS: MAGNESIUM SULFATE 1 gm IVPB 1 GM/100 ML BAG IV ONE (08:15)
--- NOTE | 2024-03-16 10:09 | P.PN ---
Date of Service: 03/16/24 Subjective: Feeling better today. Sitting up in chair today. Breathing more comfortably on room air. tolerated full liquid diet today without issues. Didn't feel bloated after denies new / worsening problems afebrile ROS: 10 point ROS as noted above, otherwise negative Physical Exam: GEN: Alert, oriented, NAD HEENT: Normal conjunctiva, sclera anicteric CV: Regular rate and rhythm, no edema Pulm: non-labored respirations at rest, clear bilaterally ABD: Soft, nontender, nondistended Neuro: Normal speech, normal affect vitals reviewed Problem List: Sepsis secondary to Proctocolitis / UTI / E. coli Esbl Bacteremia Recent prostate biopsy hematuria, resolved choledocholithiasis Hypertension Hyperlipidemia NIDDM2 Thrombocytopenia hx prior CVA Sepsis secondary to Proctocolitis / UTI / E. coli Esbl Bacteremia Recent prostate biopsy hematuria, resolved CT head (03/12): no acute intracranial abnormalities. nonspecific white matter changes most likely small vessel ischemic disease. CT abdomen (03/12): mildly thickened appearance of the rectum with perirectal fat stranding suggestive of proctitis. choledocholithiasis. Bilateral nephrolithiasis. Enlarged prostate. CXR (03/14): negative for any acute findings Urine cx (03/11): E. coli Esbl. Blood cx (03/11): E. coli esbl in / bottles Repeat blood cx (03/12): NGTD Continue merrem (03/12-03/18) for 1 week total then deescalate to PO bactrim x1 week per ID no leukocytosis, afebrile last 24-36hrs Will need to follow up with urology as outpatient ID consulted Full liquid diet -> advance to diabetic diet this evening 03/16 DC IV fluids choledocholithiasis CT on admission with findings concerning for choledocholithiasis abdominal u/s (03/15): choledocholithiasis. Common bile duct is dilated with small stone likely present in the distal common duct. Dr. Mullen, General surgery consulted to eval no indication for surgical intervention at this time. recommend follow up with GI as outpatient after this episode resolves Hypertension Hyperlipidemia confirm home meds, restart as appropriate NIDDM2 accu-checks, SSI Thrombocytopenia continue SCDs for now Daily labs VTE: SCD for now Code: Full Dispo: Home; anticipate ~Saturday morning once IV merrem is complete and remains stable / afebrile Pending afebrile > 24 hours, surgical recs, breathing improves
[2024-03-17 04:03] LABS: Albumin 2.9 g/dL (3.4-5.0); Albumin/Globulin Ratio 0.8 (1.1-1.8); Anion Gap 5.6 mEq/L (5.0-15.0); Bilirubin Total 0.6 mg/dL (0.2-1.0); Globulin 3.7 g/dL (2.3-3.5); Magnesium 2.1 mg/dL (1.6-2.4); Potassium 3.6 mEq/L (3.5-5.1); Protein, Total 6.6 g/dL (6.4-8.2)
[2024-03-17] MEDS: POTASSIUM CL SA 10 MEQ TAB PO ONE (05:26)
[2024-03-17 06:40] LABS: Phosphorus 3.8 mg/dL (2.5-4.9)
--- NOTE | 2024-03-17 10:03 | P.PN ---
Date of Service: 03/17/24 Subjective: Feeling better today. Doesn't feel anything is getting worse ambulated around the floor yesterday. had to rest for few min to catch breath after tolerating diet without issues minimal-no abdominal pain afebrile ROS: 10 point ROS as noted above, otherwise negative Physical Exam: GEN: Alert, oriented, NAD HEENT: Normal conjunctiva, sclera anicteric CV: Regular rate and rhythm, no edema Pulm: non-labored respirations on room air at rest, clear bilaterally ABD: Soft, nontender, nondistended Neuro: Normal speech, normal affect vitals reviewed Problem List: Sepsis secondary to Proctocolitis / UTI / E. coli Esbl Bacteremia Recent prostate biopsy hematuria, resolved choledocholithiasis Hypertension Hyperlipidemia NIDDM2 Thrombocytopenia hx prior CVA Sepsis secondary to Proctocolitis / UTI / E. coli Esbl Bacteremia Recent prostate biopsy hematuria, resolved CT head (03/12): no acute intracranial abnormalities. nonspecific white matter changes most likely small vessel ischemic disease. CT abdomen (03/12): mildly thickened appearance of the rectum with perirectal fat stranding suggestive of proctitis. choledocholithiasis. Bilateral nephrolithiasis. Enlarged prostate. CXR (03/14): negative for any acute findings Urine cx (03/11): E. coli Esbl. Blood cx (03/11): E. coli esbl in / bottles Repeat blood cx (03/12): NGTD Continue merrem (03/12-03/18) for 1 week total then deescalate to PO bactrim x1 week per ID no leukocytosis, afebrile Will need to follow up with urology as outpatient ID consulted tolerating regular diet without issues choledocholithiasis CT on admission with findings concerning for choledocholithiasis abdominal u/s (03/15): choledocholithiasis. Common bile duct is dilated with small stone likely present in the distal common duct. Dr. Mullen, General surgery consulted to eval no indication for surgical intervention at this time. recommend follow up with GI as outpatient after this episode resolves Hypertension Hyperlipidemia confirm home meds, restart as appropriate NIDDM2 accu-checks, SSI Thrombocytopenia continue SCDs for now Daily labs VTE: SCD for now Code: Full Dispo: Home; anticipate ~Thursday morning once IV merrem is complete and remains stable / afebrile Pending afebrile > 24 hours, surgical recs, breathing improves
[2024-03-18 06:53] LABS: Albumin/Globulin Ratio 0.8 (1.1-1.8); Anion Gap 7.4 mEq/L (5.0-15.0); Bilirubin Total 0.6 mg/dL (0.2-1.0); Globulin 3.8 g/dL (2.3-3.5); Magnesium 2.1 mg/dL (1.6-2.4); Potassium 3.4 mEq/L (3.5-5.1); Protein, Total 6.8 g/dL (6.4-8.2)
[2024-03-18] MEDS: POTASSIUM 25 MEQ EFFERV TAB PO ONE (08:38)
--- NOTE | 2024-03-18 11:41 | P.PN ---
Date of Service: 03/18/24 Subjective: Doing well. Denies any pains no new / worsening problems afebrile ROS: 10 point ROS as noted above, otherwise negative Physical Exam: GEN: Alert, oriented, NAD HEENT: Normal conjunctiva, sclera anicteric CV: Regular rate and rhythm, no edema Pulm: non-labored respirations on room air at rest, clear bilaterally ABD: Soft, nontender, nondistended Neuro: Normal speech, normal affect vitals reviewed Problem List: Sepsis secondary to Proctocolitis / UTI / E. coli Esbl Bacteremia Recent prostate biopsy hematuria, resolved choledocholithiasis Hypertension Hyperlipidemia NIDDM2 Thrombocytopenia hx prior CVA Sepsis secondary to Proctocolitis / UTI / E. coli Esbl Bacteremia Recent prostate biopsy hematuria, resolved CT head (03/12): no acute intracranial abnormalities. nonspecific white matter changes most likely small vessel ischemic disease. CT abdomen (03/12): mildly thickened appearance of the rectum with perirectal fat stranding suggestive of proctitis. choledocholithiasis. Bilateral n ephrolithiasis. Enlarged prostate. CXR (03/14): negative for any acute findings Urine cx (03/11): E. coli Esbl. Blood cx (03/11): E. coli esbl in / bottles Repeat blood cx (03/12): NGTD Continue merrem (03/12-03/18) for 1 week total then deescalate to PO bactrim x1 week per ID no leukocytosis, afebrile Will need to follow up with urology as outpatient ID consulted tolerating regular diet without issues choledocholithiasis CT on admission with findings concerning for choledocholithiasis abdominal u/s (03/15): choledocholithiasis. Common bile duct is dilated with small stone likely present in the distal common duct. Dr. Mullen, General surgery consulted to eval no indication for surgical intervention at this time. recommend follow up with GI as outpatient after this episode resolves Hypertension Hyperlipidemia confirm home meds, restart as appropriate NIDDM2 accu-checks, SSI Thrombocytopenia continue SCDs for now Daily labs VTE: SCD for now Code: Full Dispo: Home; anticipate tomorrow morning once IV merrem is complete and remains stable / afebrile
[2024-03-19 06:36] LABS: Anion Gap 11.5 mEq/L (5.0-15.0); Potassium 3.5 mEq/L (3.5-5.1)
[2024-03-19 08:02] VITALS: BP 136/83; TEMP 97.9
--- NOTE | 2024-03-19 08:05 | P.DS ---
Admission Date: 03/12/24 Discharge Date: 03/19/24 Disposition: ROUTINE DISCHARGE Discharge Condition: GOOD Reason for Admission: Fever Consultations: General surgery - Dr. Mullen Infectious Disease - Dr. Min Brief History of Present Illness: 63yo M, PMH: f hypertension, hyperlipidemia, diabetes, CVA Patient who had a recent prostate biopsy presented to ER with fever and tachycardia. Patient underwent prostate biopsy by Dr. Cooper day before admission. Denies any nausea vomiting or diarrhea. Complains of diffuse abdominal pain especially in the lower abdomen. Fever intermittent ,subjective, relieved by Tylenol. Denies any chest pain or shortness of breath. No sick contacts. Patient was assessed in the ER and was admitted for further management. CT of the abdomen pelvis was done which shows proctocolitis. Hospital Course: Problem List: Sepsis secondary to Proctocolitis / UTI / E. coli Esbl Bacteremia Recent prostate biopsy hematuria, resolved choledocholithiasis Hypertension Hyperlipidemia NIDDM2 Thrombocytopenia hx prior CVA Physician Discharge instructions: Patient presented with diffuse abdominal pain, fever, tachycardia and was found to have acute proctocolotis seen on CT complicated by UTI, E. coli Esbl bacteremia. ID was consulted. Urine and blood cultures both grew E. coli Esbl, sensitive to merrem/bactrim. Patient completed 1 week of IV merrem and is to complete 1 more week of oral bactrim on discharge (End date: 03/25). Repeat blood cultures were without growth. Patient was feeling better, pain improved, tolerating diet without issues, afebrile without leukocytosis, and was deemed stable for discharge. Advised patient to follow up with urology as outpatient for further management, for which he states he is scheduled to follow up in the office this coming week. CT on admission also reported findings concerning for choledocholithiasis. Abdominal ultrasound noted choledocholithiasis and dilated common bile duct with small stone likely present in the distal common duct. Dr. Mullen, general surgeon, was consulted and recommended against surgical management at this time given current infection/bacteremia and patient is asymptomatic and LFTs /Tbili levels were normal and remained stable throughout hospitalization. Patient was advised to have close follow up with a GI physician in the coming weeks to plan for potential MRCP/ERCP to be done after recovery from this infection Medications: Bactrim x1 week Follow up: PCP 3-5 days GI in 2-4 weeks Urology in 1-2 weeks Please call to schedule / confirm appointments Physical Exam: GEN: Alert, oriented, NAD HEENT: Normal conjunctiva, sclera anicteric CV: Regular rate and rhythm, no edema Pulm: non-labored respirations on room air at rest, clear bilaterally ABD: Soft, nontender, nondistended Neuro: Normal speech, normal affect Vital Signs/Physical Exam: Temp Pulse Resp BP Pulse Ox 97.9 F 81 16 136/83 97 03/19/24 07:51 03/19/24 07:51 03/19/24 07:51 03/19/24 07:51 03/19/24 07:51 Laboratory Data at Discharge: WBC 4.60 thou/uL (4.3-10.9) 03/16/24 03:19 Hgb 12.7 g/dL (13.6-17.9) L 03/16/24 03:19 Hct 37.8 % (39.6-49.0) L 03/16/24 03:19 Plt Count 118 thou/uL (152-406) L 03/16/24 03:19 PT 16.9 SECONDS (9.5-12.5) H 03/11/24 22:00 INR 1.56 03/11/24 22:00 APTT 28.6 SECONDS (24.3-36.9) 03/11/24 22:00 Sodium 137 mEq/L (136-145) 03/19/24 05:59 Potassium 3.5 mEq/L (3.5-5.1) 03/19/24 05:59 BUN 24 mg/dL (7-18) H 03/19/24 05:59 Creatinine 1.01 mg/dL (0.70-1.30) 03/19/24 05:59 Glucose 125 mg/dL (74-106) H 03/19/24 05:59 Phosphorus 3.8 mg/dL (2.5-4.9) 03/17/24 03:16 Magnesium 2.1 mg/dL (1.6-2.4) 03/18/24 06:24 Total Bilirubin 0.6 mg/dL (0.2-1.0) 03/18/24 06:24 AST 36 U/L (15-37) 03/18/24 06:24 ALT 60 U/L (16-61) 03/18/24 06:24 Alkaline Phosphatase 95 U/L (45-117) 03/18/24 06:24 Home Medications: Aspirin [Aspirin EC] 81 mg PO DAILY 03/12/24 Butalbit/Acetamin/Caff/Codeine [Cqdatt-Cgkhwgae-Xne-Cod 50-325] 1 cap PO Q4H PRN 03/12/24 Carvedilol [Coreg] 12.5 mg PO BID 03/12/24 Cyclobenzaprine HCl 10 mg PO BEDTIME PRN 03/12/24 Metformin ER [Glucophage ER*] 500 mg PO BID 03/12/24 NIFEdipine [Nifedipine ER] 90 mg PO DAILY 03/12/24 hydroCHLOROthiazide [Hydrochlorothiazide] 25 mg PO DAILY 03/12/24 Carvedilol [Coreg] 12.5 mg PO BID 03/14/24 Smz./Tmp. [Bactrim Ds 800 MG/160 MG] 1 tab PO BID 7 Days #14 tab 03/19/24 New Medications: Smz./Tmp. [Bactrim Ds 800 MG/160 MG] 1 tab PO BID 7 Days #14 tab Physician Discharge Instructions: Physician Discharge instructions: Patient presented with diffuse abdominal pain, fever, tachycardia and was found to have acute proctocolotis seen on CT complicated by UTI, E. coli Esbl bacteremia. ID was consulted. Urine and blood cultures both grew E. coli Esbl, sensitive to merrem/bactrim. Patient completed 1 week of IV merrem and is to complete 1 more week of oral bactrim on discharge (End date: 03/25). Repeat blood cultures were without growth. Patient was feeling better, pain improved, tolerating diet without issues, afebrile without leukocytosis, and was deemed stable for discharge. Advised patient to follow up with urology as outpatient for further management, for which he states he is scheduled to follow up in the office this coming week. CT on admission also reported findings concerning for choledocholithiasis. Abdom inal ultrasound noted choledocholithiasis and dilated common bile duct with small stone likely present in the distal common duct. Dr. Mullen, general surgeon, was consulted and recommended against surgical management at this time given current infection/bacteremia and patient is asymptomatic and LFTs /Tbili levels were normal and remained stable throughout hospitalization. Patient was advised to have close follow up with a GI physician in the coming weeks to plan for potential MRCP/ERCP to be done after recovery from this infection Medications: Bactrim x1 week Follow up: PCP 3-5 days GI in 2-4 weeks Urology in 1-2 weeks Please call to schedule / confirm appointments Followup: NONE,NONE [Primary Care Provider] - Time spent managing pt's care (in minutes): 45
[2024-03-19] MEDS: POTASSIUM CL SA 10 MEQ TAB PO ONE (08:27)
[2024-03-19 08:40] VITALS: O2SAT 98
== END 2024-03-19 12:01 | disposition home or self-care (01) | DRG 872 ==
LOC: ER 21:34 → 4TH 03-12 00:14
PROVIDERS: ADMIT Family Medicine; ATTEND Hospitalist
DX: A41.51 Sepsis due to Escherichia coli [E. coli] (principal); N39.0 Urinary tract infection, site not specified; K51.30 Ulcerative (chronic) rectosigmoiditis without complications; Z16.12 Extended spectrum beta lactamase (ESBL) resistance; E78.5 Hyperlipidemia, unspecified; E11.9 Type 2 diabetes mellitus without complications; R65.20 Severe sepsis without septic shock; I10 Essential (primary) hypertension; N40.0 Benign prostatic hyperplasia without lower urinary tract symptoms; K80.50 Calculus of bile duct without cholangitis or cholecystitis without obstruction; D75.829 Heparin-induced thrombocytopenia, unspecified; T45.515A Adverse effect of anticoagulants, initial encounter; R31.9 Hematuria, unspecified; Z79.82 Long term (current) use of aspirin; Z79.84 Long term (current) use of oral hypoglycemic drugs; Z79.02 Long term (current) use of antithrombotics/antiplatelets; Z86.73 Personal history of transient ischemic attack (TIA), and cerebral infarction without residual deficits; Z79.899 Other long term (current) drug therapy
CPT/HCPCS: 31720; 36415; 70450; 71045; 74177; 76705; 80048; 80053; 80076; 80202; 81001; 82947; 83605; 83735; 84100; 84484; 85025; 85610; 85730; 87040; 87077; 87186; 87205; 93005; 94010; 94640; 94760; 99285; J0360; J0696; J1650; J1815; J2185; J2405; J3475; J7030; J7040; J7050; J7613; J7644; Q9967